=== PATIENT | male | born 1970 | race Caucasian/White ===

== ENCOUNTER 2016-11-24 16:29 | Emergency (ER) | payer OTHER ==
[2016-11-24 17:36] LABS: BASOPHIL % 0.7 % (0-2); PLATELET COUNT 183 x10^3mcL (130-400)
[2016-11-24 17:42] LABS: microscopic required? YES; urine erythrocyte NEGATIVE (NEGATIVE)
[2016-11-24 17:44] LABS: CALCIUM 8.3 mg/dL (8.5-10.1); CARBON DIOXIDE 23.8 mmol/L (21-32); CHLORIDE SERUM 104 mmol/L (98-107); CREATININE SERUM 1.1 mg/dL (0.7-1.3); GFR1 > 60 mL/min; GLUCOSE SERUM 143 mg/dL (74-106); POTASSIUM SERUM 3.5 mmol/L (3.5-5.1); SODIUM SERUM 138 mmol/L (136-145)
[2016-11-24 17:49] LABS: AMPHETAMINE QUAL UR NONE DETECTED (NEG <=1000)
[2016-11-24 17:57] LABS: ALBUMIN 3.2 g/dL (3.4-5.0); ALKALINE PHOSPHATASE 177 U/L (46-116); ALT/SGPT 323 U/L (16-63); AMYLASE 30 U/L (25-115); AST/SGOT 395 U/L (15-37); BILIRUBIN TOTAL 1.2 mg/dL (0.20-1.00); CHOLESTEROL 118 mg/dL (<200); HDL CHOLESTEROL 51 mg/dL (40-60); LIPASE 223 IU/L (73-393); MAGNESIUM 1.5 mg/dL (1.8-2.4); T4(THYROXINE) 7.5 ug/dL (4.7-13.3); TOTAL PROTEIN, SERUM 7.4 g/dL (6.4-8.2)
[2016-11-24 21:00] VITALS: BP 121/85
== END 2016-11-24 21:00 | disposition home or self-care (01) ==
LOC: ED 16:29
PROVIDERS: Emergency Medicine
DX: R55 Syncope and collapse (principal); R16.0 Hepatomegaly, not elsewhere classified; E11.9 Type 2 diabetes mellitus without complications; I10 Essential (primary) hypertension; K42.9 Umbilical hernia without obstruction or gangrene; Z79.84 Long term (current) use of oral hypoglycemic drugs; Z88.0 Allergy status to penicillin
CPT/HCPCS: 83880; J7030; Q9967

== ENCOUNTER 2017-02-04 16:11 | Inpatient (IN) | payer OTHER ==
[~2017-02-04] VITALS: Ht 177.8 cm; Wt 82.7 kg
--- NOTE | 2017-02-04 17:10 | NUR ---
PT HERE FOR C/O DIZZINESS SINCE YESTERDAY WITH N/V/D. PT'S DAUGHTER AT BEDSIDE PRIVATELY REPORTED TO STUDENT NURSE CHENCHO THOMAS THAT PT HAS BEEN DRINKING "ALL WEEK" AND IS AN "ALCOHOLIC." PT HAS FULL CLEAR SPEECH AND IS ACTING APPROPRIATE; NO SIGNS OF SOB OR C/O CHEST PAIN. PT DENIES PAIN AT THIS TIME. PT PLACED ON FULL MONITORS, CALL LIGHT WITHIN REACH. NO SIGNS OF WEAKNESS.
--- NOTE | 2017-02-04 17:42 | NUR ---
PLEASE ENTER FULL NAMES OF STUDENT/RN Documentation completed by (Student Nurse): CHENCHO THOMAS Documentation reviewed by (Registered Nurse): NEIL LEWIS
[2017-02-04 17:52] LABS: CALCIUM 8.4 mg/dL (8.5-10.1); CARBON DIOXIDE 19.7 mmol/L (21-32); CREATININE SERUM 1.6 mg/dL (0.7-1.3); POTASSIUM SERUM 3.7 mmol/L (3.5-5.1)
[2017-02-04 17:54] LABS: BASOPHIL % 0.5 % (0-2); PLATELET COUNT 148 x10^3mcL (130-400)
[2017-02-04 17:57] LABS: BILIRUBIN TOTAL 0.46 mg/dL (0.20-1.00); TOTAL PROTEIN, SERUM 6.2 g/dL (6.4-8.2)
[2017-02-04 17:58] LABS: ALBUMIN 2.5 g/dL (3.4-5.0)
[2017-02-04 18:04] LABS: RED CELL DISTRIBUTION WIDTH 19.4 % (11.5-14.5)
--- NOTE | 2017-02-04 18:08 | NUR ---
PT ADMITS TO BLACK STOOLS YESTERDAY. VOMITED BLACK MATERIAL TODAY "WITH LITTLE RED THINGS FROM MY THROAT."
--- NOTE | 2017-02-04 18:10 | NUR ---
RECTAL EXAM DONE BY DR. MUÑOZ.
--- NOTE | 2017-02-04 18:20 | NUR ---
BILAT NARES SWABBED FOR MRSA SCREENING.
[2017-02-04] MEDS ORDERED: LISINOPRIL10 MG PO (18:24)
[2017-02-04] MEDS ORDERED: GLUCOTROL5 MG PO (18:24)
[2017-02-04] MEDS ORDERED: METFORMIN HCL1000 MG PO (18:24)
--- NOTE | 2017-02-04 18:25 | NUR ---
CALLED [facility] TO COMPLETE MED'S REC. METFORMIN & LISINOPRIL LAST FILLED IN June, DAY SUPPLY. GLIPIZIDE LAST FILLED IN June, DAY SUPPLY. PT IS OBVIOUSLY NONCOMPLIANT. PT STATED TODAY NO MEDS X 2 DAYS.
--- NOTE | 2017-02-04 18:29 | NUR ---
DR MUÑOZ MADE AWARE OF PT PAIN LEVEL.
[2017-02-04 18:31] LABS: rbc morphology (normal/abnorm) ABNORMAL (NORMAL)
--- NOTE | 2017-02-04 19:33 | NUR ---
PT RESTING, AAOX4, BREATHING EVEN AND UNLABORED. PT IN NO ACUTE DISTRESS.
--- NOTE | 2017-02-04 19:49 | NUR ---
GAVE REPORT TO JENNI ESPINOSA, TO ASSUME CARE POST TRANSFER.
[2017-02-04 19:57] LABS: UA SPECIFIC GRAVITY >=1.030 (1.005-1.035); microscopic required? YES; urine erythrocyte NEGATIVE (NEGATIVE)
--- NOTE | 2017-02-04 20:00 | NUR ---
RECEIVED PT FROM ED VIA KliqueERNEY, CAME IN DUE TO DIZZINESS. AAOX4. DENIES HEADACHE/DIZZINESS. NO SOB NOTED. C/O 10/10 LEFT SIDE OF THE CHEST PAIN, NON-RADIATING DESCRIBED ACHING. PT IS ATRIAL FLUTTER ON THE MONITOR, HR AT 101. ABDOMEN IS DISTENDED BUT SOFT, STATED THAT HE NOTICED THE DISTENTION YESTERDAY. STATED THAT HE HAS BEEN PASSING GAS AND HAD BLACK DIARRHEAL STOOLS THAT STARTED TODAY. PALE. C/O NAUSEA, STATED THAT HE VOMITED X8 SINCE YESTERDAY. SIDE RAILS UPX2. CALL LIGHT ON REACH. ENDORSED TO PRIMARY NURSE JENNI FOR CONTINUITY OF CARE.
[2017-02-04 20:13] LABS: AMPHETAMINE QUAL UR POSITIVE (NEG <=1000)
[2017-02-04 20:24] VITALS: BP 125/66
[2017-02-04 20:29] VITALS: Ht 177.8 cm; Wt 82.7 kg
--- NOTE | 2017-02-04 21:55 | NUR ---
PATIENTS H/H 5.08/16 RECEIVED ORDERS TO TRANSFUSE 4 UNITS OF PRBC. 1ST UNIT OF PRBC STARTED. PRE TRANSFUSION VITAL SIGNS FOLLOWS TEMP 98.2, HR 108, RR 18, BP 125/66, O2 SAT 99%. WILL MONITOR FOR ANY TRANSFUSION REACTION.
--- NOTE | 2017-02-05 01:09 | NUR ---
PATIENT COMPLETED 1ST UNIT OF PRBC. POST TRANSFUSION VITAL SIGNS FOLLOWS TEMP 100.7 HR 97, BP 99/73, O2 SAT 99%. DR BUENO MADE AWARE OF ELEVATED TEMPERATURE. RECEIVED ORDERS TO RUN BLOOD TRANSFUSION 3-4HRS AND GIVE TYLENOL 650 MG PO ORDERED. NO FURTHER COMPLAINTS MADE. COOLING MEASURES PROVIDED.
--- NOTE | 2017-02-05 01:30 | NUR ---
2ND UNIT OF PRBC STARTED. PRE TRANSFUSION VITAL SIGNS FOLLOWS TEMP 100.7 HR 97, BP 99/73, RR 20, O2SAT 99%. WILL CONTINUE TO MONITOR FOR ANY TRANSFUSION REACTION.
[2017-02-05 06:18] VITALS: BP 108/64
--- NOTE | 2017-02-05 06:30 | NUR ---
SPOT CHECK BLOOD SUGAR 232 MG/DL. PATIENT NPO.
--- NOTE | 2017-02-05 06:36 | NUR ---
3RD UNIT OF PRBC STARTED. PRE TRANSFUSION VITAL SIGNS FOLLOWS TEMP 100.3, HR 90, BP 105/70, RR 20, O2SAT 99%. WILL CONTINUE TO MONITOR FOR ANY TRANSFUSION REACTION.
--- NOTE | 2017-02-05 06:37 | NUR ---
PATIENT RESTING IN BED AT THIS TIME. NO COMPLAINT MADE. RESPIRATION EVEN AND UNLABORED, ON ROOM AIR. NO SIGN OF BLEEDING NOTED. FOR EGD THIS AM. ONGOING 3RD UNIT OF PRBC. ASSISTED WITH NEEDS. SAFETY OBSERVED. PLACED CALL LIGHT WITHIN REACH AT ALL TIMES.
--- NOTE | 2017-02-05 07:34 | NUR ---
PT IN GI LAB
--- NOTE | 2017-02-05 08:39 | NUR ---
PT BACK FROM GI LAB SLEEPY BUT AROUSABLE. IN NO ACUTE RESP. DISTRESS. VS STABLE. ONGOING BLOOD TRANSFUSION AND NO ACTIVE REACTION NOTED. FAMILY AT BEDSIDE. CALL LIGHT WITHIN REACH. WILL CONTINUE W/PLAN OF CARE.
[2017-02-05 09:00] VITALS: BP 97/61
--- NOTE | 2017-02-05 10:00 | NUR ---
3RD UNIT PRBC TRANSFUSED, PT TOLERATED WELL. NO ACTIVE REACTION NOTED. VS STABLE. PT RESTING IN BED, NO DISTRESS NOTED. NO C/O PAIN OR DISCOMFORT.
--- NOTE | 2017-02-05 12:41 | NUR ---
4TH UNIT PRBC INFUSING WELL, NO REACTION NOTED. NO CHANGES IN VS. PT TOLERATING WELL.
[2017-02-05 13:56] LABS: BASOPHIL % 0.7 % (0-2)
[2017-02-05 14:01] LABS: PLATELET COUNT 123 x10^3mcL (130-400); RED CELL DISTRIBUTION WIDTH 22.2 % (11.5-14.5)
[2017-02-05 14:11] VITALS: BP 101/67
[2017-02-05 14:44] LABS: CARBON DIOXIDE 26.5 mmol/L (21-32); CHLORIDE SERUM 102 mmol/L (98-107); CREATININE SERUM 0.7 mg/dL (0.7-1.3); GFR1 > 60 mL/min; GLUCOSE SERUM 323 mg/dL (74-106); MAGNESIUM 1.5 mg/dL (1.8-2.4); POTASSIUM SERUM 3.6 mmol/L (3.5-5.1); SODIUM SERUM 132 mmol/L (136-145)
[2017-02-05 14:47] LABS: TOTAL IRON BINDING CAPACITY 329 ug/dL (250-450)
[2017-02-05 15:05] LABS: IRON 23 ug/dL (65-170)
--- NOTE | 2017-02-05 15:16 | NUR ---
BLOOD TRANSFUSION COMPLETED, PT TOLERATED WELL. NO REACTION NOTED. VS STABLE. NO C/O PAIN OR DISCOMFORT AT THIS TIME. GI PREP IN PROGRESS. WILL CONTINUE TO MONITOR.
[2017-02-05 18:02] VITALS: BP 117/77
--- NOTE | 2017-02-05 18:36 | NUR ---
GI PREP. IN PROGRESS. PT TOLERATING WELL. REMAINS IN NO DISTRESS. AWAKE AND ALERT. NO C/O PAIN OR DISCOMFORT AT THIS TIME. IVF INFUSING WELL AND SITE CLEAR. CALL LIGHT WITHIN REACH. WILL BE ENDORSED TO INCOMING SHIFT.
--- NOTE | 2017-02-05 18:38 | NUR ---
CONSENT FOR COLONOSCOPY SIGNED. CHECKLIST STARTED.
--- NOTE | 2017-02-05 20:02 | NUR ---
PT CURRENTLY RESTING IN BED, NO ACUTE DISTRESS. A/O X4. TELE #22 SHOWING SINUS RHYTHM, DENIES CHEST PAIN. PULSES PALPABLE IN ALL EXTREMITIES, NO EDEMA NOTED. LUNG SOUNDS CTA BILATERALLY, DENIES SOB. BOWEL SOUNDS ACTIVE, LAST BM 02/05/17, DIARRHEA DUE TO BOWEL PREP. VOIDING WELL. AMBULATORY. SKIN INTACT. DENIES PAIN AT THIS TIME. IV PATENT AND INTACT. BED IN LOWEST POSITION, SIDE RAILS UP X2, SCDS IN PLACE, CALL LIGHT WITHIN REACH. WILL CONTINUE TO MONITOR.
[2017-02-05 20:52] VITALS: BP 111/62
[2017-02-06 05:24] VITALS: BP 123/82
--- NOTE | 2017-02-06 05:49 | NUR ---
PT SLEPT PERIODICALLY THROUGHOUT NIGHT, NO ACUTE DISTRESS. ALL NEEDS MET AND ATTENDED TO. NO SIGNIFICANT CHANGES. IV PATENT AND INTACT. BED IN LOWEST POSITION, SIDE RAILS UP X2, SCDS IN PLACE, CALL LIGHT WITHIN REACH. WILL ENDORSE CARE TO ONCOMING NURSE.
[2017-02-06 06:33] LABS: CALCIUM 8.2 mg/dL (8.5-10.1); CARBON DIOXIDE 26.4 mmol/L (21-32); CHLORIDE SERUM 104 mmol/L (98-107); CREATININE SERUM 0.6 mg/dL (0.7-1.3); GFR1 > 60 mL/min; GLUCOSE SERUM 209 mg/dL (74-106); MAGNESIUM 1.6 mg/dL (1.8-2.4); POTASSIUM SERUM 4.2 mmol/L (3.5-5.1); SODIUM SERUM 136 mmol/L (136-145)
[2017-02-06 06:37] LABS: BASOPHIL % 0.6 % (0-2)
[2017-02-06 06:39] LABS: PLATELET COUNT 116 x10^3mcL (130-400); RED CELL DISTRIBUTION WIDTH 21.7 % (11.5-14.5)
--- NOTE | 2017-02-06 07:33 | NUR ---
RECEIVED ASLEEP BUT AROUSABLE, NO DISTRESS NOTED. NO C/O PAIN OR DISCOMFORT. VS WNL. IVF INFUSING WELL AND SITE CLEAR. CALL LIGHT WITHIN REACH. WILL CONRINUE W/PLAN OF CARE.
[2017-02-06 09:55] VITALS: BP 110/76
--- NOTE | 2017-02-06 11:30 | NUR ---
PT IS BACK FROM GI LAB SLEEPY BUT AROUSABLE, NO DISTRESS NOTED. NO C/O PAIN OR DISCOMFORT. VSS.
[2017-02-06] MEDS ORDERED: FERROUS SULFAT325 M2 PO (13:01)
[2017-02-06] MEDS ORDERED: PROTONIX40 MG PO (13:01)
[2017-02-06 13:05] VITALS: BP 110/76
--- NOTE | 2017-02-06 14:02 | NUR ---
PT DC'D HOME IN NO DISTRESS, AWAKE, ALERT AND ORIENTED. VS STABLE. NO C/O PAIN OR DISCOMFORT. NO ACTIVE GI BLEED NOTED. TOLERATED WELL WITH REG. DIET. DC INSTRUCTIONS REVIEWED WITH PT AND . RX GIVEN. HL REMOVED AND SITE CLEAR. PERSONAL BELONGINGS TAKEN HOME.
== END 2017-02-06 13:58 | disposition home or self-care (01) | DRG 253 ==
LOC: ED 16:11 → DU 19:19
PROVIDERS: Emergency Medicine; ADMIT Internal Medicine Pulmonary Disease
PROC: 30233N1 Transfusion of Nonautologous Red Blood Cells into Peripheral Vein, Percutaneous Approach (ICD-10-PCS; principal; 2017-02-04)
PROC: 0DB68ZX Excision of Stomach, Via Natural or Artificial Opening Endoscopic, Diagnostic (ICD-10-PCS; 2017-02-05)
PROC: 0DBG8ZX Excision of Left Large Intestine, Via Natural or Artificial Opening Endoscopic, Diagnostic (ICD-10-PCS; 2017-02-06)
DX: K92.2 Gastrointestinal hemorrhage, unspecified (principal); N17.9 Acute kidney failure, unspecified; E87.2 Acidosis; E87.1 Hypo-osmolality and hyponatremia; E11.9 Type 2 diabetes mellitus without complications; Z88.0 Allergy status to penicillin; I10 Essential (primary) hypertension; K21.9 Gastro-esophageal reflux disease without esophagitis; K76.0 Fatty (change of) liver, not elsewhere classified; D62 Acute posthemorrhagic anemia; E86.1 Hypovolemia; K63.5 Polyp of colon; K29.70 Gastritis, unspecified, without bleeding
CPT/HCPCS: 36600; 43239; 45378; 82962; 83880; C9113; J1200; J1610; J1815; J2250; J2310; J2405; J3010; J3490; J7030; J7040; P9016; Q0092

== ENCOUNTER 2017-02-16 12:00 | Emergency (ER) | payer OTHER ==
[~2017-02-16 12:00] MED LIST: FERROUS SULFAT325 M2 PO; GLUCOTROL5 MG PO; LISINOPRIL10 MG PO; METFORMIN HCL1000 MG PO; PROTONIX40 MG PO
[2017-02-16 14:06] VITALS: BP 105/75
== END 2017-02-16 14:06 | disposition home or self-care (01) ==
LOC: ED 12:00
DX: S40.011A Contusion of right shoulder, initial encounter (principal); E11.9 Type 2 diabetes mellitus without complications; I10 Essential (primary) hypertension; Z79.4 Long term (current) use of insulin; Z88.0 Allergy status to penicillin; X58.XXXA Exposure to other specified factors, initial encounter; Y93.89 Activity, other specified; Y92.89 Other specified places as the place of occurrence of the external cause; Y99.8 Other external cause status
CPT/HCPCS: Q0092

== ENCOUNTER 2017-12-03 21:12 | Inpatient (IN) | payer OTHER ==
[~2017-12-03] VITALS: Ht 177.8 cm; Wt 92.7 kg
[2017-12-03 21:23] VITALS: Ht 177.8 cm; Wt 92.7 kg
[2017-12-03 22:06] LABS: CALCIUM 7.4 mg/dL (8.5-10.1); CARBON DIOXIDE 23.3 mmol/L (21-32); CHLORIDE SERUM 102 mmol/L (98-107); CREATININE SERUM 0.8 mg/dL (0.7-1.3); GFR1 > 60 mL/min; GLUCOSE SERUM 200 mg/dL (74-106); POTASSIUM SERUM 3.8 mmol/L (3.5-5.1); SODIUM SERUM 136 mmol/L (136-145)
[2017-12-03 22:12] LABS: BASOPHIL % 0.3 % (0-2); PLATELET COUNT 307 x10^3mcL (130-400)
[2017-12-03 22:15] LABS: RED CELL DISTRIBUTION WIDTH 26.3 % (11.5-14.5)
[2017-12-03 22:17] LABS: ALKALINE PHOSPHATASE 135 U/L (46-116); ALT/SGPT 40 U/L (16-63); AMYLASE 50 U/L (25-115); AST/SGOT 50 U/L (15-37); BILIRUBIN TOTAL 1.69 mg/dL (0.20-1.00); LIPASE 400 IU/L (73-393); MAGNESIUM 1.7 mg/dL (1.8-2.4); T4(THYROXINE) 5.2 ug/dL (4.7-13.3); TOTAL PROTEIN, SERUM 6.7 g/dL (6.4-8.2)
[2017-12-03 22:18] LABS: ALBUMIN 2.3 g/dL (3.4-5.0); CHOLESTEROL 108 mg/dL (<200); HDL CHOLESTEROL 26 mg/dL (40-60)
[2017-12-04] VITALS (13 sets, daily range): BP systolic 103–125; BP diastolic 61–84
[2017-12-04 00:14] LABS: UA SPECIFIC GRAVITY 1.025 (1.005-1.035); microscopic required? YES; urine erythrocyte NEGATIVE (NEGATIVE)
[2017-12-04 00:48] LABS: AMPHETAMINE QUAL UR NONE DETECTED (See below)
[2017-12-04 00:58] LABS: rbc morphology (normal/abnorm) ABNORMAL (NORMAL)
[2017-12-04 00:59] LABS: target cell (codocyte) 1+
[2017-12-04 11:16] LABS: BASOPHIL % 0.8 % (0-2); PLATELET COUNT 243 x10^3mcL (130-400)
[2017-12-04 11:27] LABS: CALCIUM 7.5 mg/dL (8.5-10.1); CHLORIDE SERUM 100 mmol/L (98-107); CREATININE SERUM 0.7 mg/dL (0.7-1.3); GFR1 > 60 mL/min; GLUCOSE SERUM 209 mg/dL (74-106); POTASSIUM SERUM 3.6 mmol/L (3.5-5.1); SODIUM SERUM 135 mmol/L (136-145)
[2017-12-04 11:35] LABS: rbc morphology (normal/abnorm) ABNORMAL (NORMAL)
[2017-12-04 11:36] LABS: target cell (codocyte) 1+
[2017-12-04 22:16] LABS: BASOPHIL % 1.3 % (0-2); PLATELET COUNT 224 x10^3mcL (130-400)
[2017-12-04 22:21] LABS: RED CELL DISTRIBUTION WIDTH 21.5 % (11.5-14.5)
[2017-12-04 22:46] LABS: rbc morphology (normal/abnorm) ABNORMAL (NORMAL); target cell (codocyte) 1+
[2017-12-05] VITALS (10 sets, daily range): BP systolic 96–122; BP diastolic 61–70
[2017-12-05 06:34] LABS: BASOPHIL % 0.5 % (0-2); PLATELET COUNT 214 x10^3mcL (130-400)
[2017-12-05 06:44] LABS: RED CELL DISTRIBUTION WIDTH 20.3 % (11.5-14.5)
[2017-12-05 06:54] LABS: ALKALINE PHOSPHATASE 121 U/L (46-116); ALT/SGPT 36 U/L (16-63); AST/SGOT 61 U/L (15-37); BILIRUBIN TOTAL 3.56 mg/dL (0.20-1.00); CALCIUM 7.8 mg/dL (8.5-10.1); CARBON DIOXIDE 23.5 mmol/L (21-32); CHLORIDE SERUM 101 mmol/L (98-107); CREATININE SERUM 0.8 mg/dL (0.7-1.3); GFR1 > 60 mL/min; GLUCOSE SERUM 145 mg/dL (74-106); POTASSIUM SERUM 4.2 mmol/L (3.5-5.1); SODIUM SERUM 133 mmol/L (136-145); TOTAL PROTEIN, SERUM 6.3 g/dL (6.4-8.2)
[2017-12-05 09:05] LABS: rbc morphology (normal/abnorm) ABNORMAL (NORMAL)
[2017-12-06 06:03] VITALS: BP 97/59
[2017-12-06 06:13] LABS: BASOPHIL % 0.3 % (0-2); PLATELET COUNT 198 x10^3mcL (130-400)
[2017-12-06 06:26] LABS: ALKALINE PHOSPHATASE 103 U/L (46-116); ALT/SGPT 44 U/L (16-63); AST/SGOT 80 U/L (15-37); BILIRUBIN TOTAL 3.06 mg/dL (0.20-1.00); CALCIUM 7.8 mg/dL (8.5-10.1); CARBON DIOXIDE 27.1 mmol/L (21-32); CHLORIDE SERUM 104 mmol/L (98-107); CREATININE SERUM 0.8 mg/dL (0.7-1.3); GFR1 > 60 mL/min; GLUCOSE SERUM 133 mg/dL (74-106); POTASSIUM SERUM 4.1 mmol/L (3.5-5.1); SODIUM SERUM 136 mmol/L (136-145)
[2017-12-06 06:39] LABS: ALBUMIN 1.8 g/dL (3.4-5.0); TOTAL PROTEIN, SERUM 5.8 g/dL (6.4-8.2)
[2017-12-06 09:15] LABS: ovalocyte/elliptocyte 1+
[2017-12-06 09:16] LABS: rbc morphology (normal/abnorm) ABNORMAL (NORMAL); schistocyte (helmet cell) 1+; target cell (codocyte) 1+; tear drop cell (dacryocyte) 1+
[2017-12-06 09:33] VITALS: BP 106/87
[2017-12-06 10:30] VITALS: BP 106/87
[2017-12-06 18:25] LABS: SOURCE FLUID ASCITES
[2017-12-06 18:26] LABS: COLOR FLUID YELLOW
[2017-12-06 18:53] LABS: APPEARANCE FLUID CLEAR
[2017-12-06 18:54] LABS: RBC FLUID 3.3 /cumm; WBC FLUID 6.7 /cumm
== END 2017-12-06 12:29 | disposition home or self-care (01) | DRG 280 ==
LOC: ED 21:12 → DU 22:48
PROVIDERS: Emergency Medicine; Internal Medicine; Internal Medicine Gastroenterology; Internal Medicine Pulmonary Disease
PROC: 30233N1 Transfusion of Nonautologous Red Blood Cells into Peripheral Vein, Percutaneous Approach (ICD-10-PCS; principal; 2017-12-04)
PROC: 0W9G3ZZ Drainage of Peritoneal Cavity, Percutaneous Approach (ICD-10-PCS; 2017-12-05)
PROC: 0DB78ZX Excision of Stomach, Pylorus, Via Natural or Artificial Opening Endoscopic, Diagnostic (ICD-10-PCS; 2017-12-05 12:45)
DX: K70.31 Alcoholic cirrhosis of liver with ascites (principal); K22.11 Ulcer of esophagus with bleeding; K85.20 Alcohol induced acute pancreatitis without necrosis or infection; D62 Acute posthemorrhagic anemia; K44.9 Diaphragmatic hernia without obstruction or gangrene; F10.129 Alcohol abuse with intoxication, unspecified; I10 Essential (primary) hypertension; I85.10 Secondary esophageal varices without bleeding; E11.9 Type 2 diabetes mellitus without complications; R60.1 Generalized edema; Y90.8 Blood alcohol level of 240 mg/100 ml or more; E78.00 Pure hypercholesterolemia, unspecified; K42.9 Umbilical hernia without obstruction or gangrene; Z68.27 Body mass index [BMI] 27.0-27.9, adult; Z88.0 Allergy status to penicillin; Z91.19 Patient's noncompliance with other medical treatment and regimen
CPT/HCPCS: 43235; 49083; 83880; C1729; C9113; G0480; J1200; J1610; J1815; J1940; J1956; J2001; J2250; J2310; J2354; J2916; J3010; J3430; J3490; J7040; J7050; P9016; Q0092

== ENCOUNTER 2018-01-21 10:08 | Emergency (ER) | payer OTHER ==
[2018-01-21 13:24] VITALS: BP 119/77
== END 2018-01-21 13:24 | disposition home or self-care (01) ==
LOC: ED 10:08
DX: S22.32XA Fracture of one rib, left side, initial encounter for closed fracture (principal); I10 Essential (primary) hypertension; E11.9 Type 2 diabetes mellitus without complications; K70.31 Alcoholic cirrhosis of liver with ascites; Z88.0 Allergy status to penicillin; X58.XXXA Exposure to other specified factors, initial encounter; Y93.89 Activity, other specified; Y92.89 Other specified places as the place of occurrence of the external cause; Y99.8 Other external cause status

== ENCOUNTER 2018-06-17 03:50 | Inpatient (IN) | payer OTHER ==
[~2018-06-17] VITALS: Ht 175.3 cm; Wt 87.1 kg
[2018-06-17 03:56] VITALS: Ht 175.3 cm; Wt 87.1 kg
[2018-06-17 04:44] LABS: BASOPHIL % 0.5 % (0-2); PLATELET COUNT 130 x10^3mcL (130-400)
[2018-06-17 04:45] LABS: RED CELL DISTRIBUTION WIDTH 19.5 % (11.5-14.5)
[2018-06-17 05:31] LABS: CALCIUM 8.5 mg/dL (8.5-10.1); CARBON DIOXIDE 21.1 mmol/L (21-32); CHLORIDE SERUM 100 mmol/L (98-107); CREATININE SERUM 1.1 mg/dL (0.7-1.3); GFR1 > 60 mL/min; GLUCOSE SERUM 135 mg/dL (74-106); POTASSIUM SERUM 3.8 mmol/L (3.5-5.1); SODIUM SERUM 133 mmol/L (136-145)
[2018-06-17 05:35] LABS: ALKALINE PHOSPHATASE 119 U/L (46-116); ALT/SGPT 30 U/L (16-63); AST/SGOT 36 U/L (15-37); LIPASE 551 IU/L (73-393); TOTAL PROTEIN, SERUM 8.2 g/dL (6.4-8.2)
[2018-06-17 05:36] LABS: ALBUMIN 2.8 g/dL (3.4-5.0)
[2018-06-17] MEDS ORDERED: RELION HUMUL100 U/M2 (06:04)
[2018-06-17] MEDS ORDERED: LASIX40 MG (06:06)
[2018-06-17] MEDS ORDERED: EPZICOM1 TAB (06:06)
[2018-06-17 12:37] VITALS: BP 94/58
[2018-06-17 13:21] VITALS: BP 102/72
[2018-06-17 13:25] LABS: microscopic required? NO
[2018-06-17 13:30] LABS: urine erythrocyte NEGATIVE (NEGATIVE)
[2018-06-17 13:39] LABS: AMPHETAMINE QUAL UR NONE DETECTED (See below)
[2018-06-17 16:43] VITALS: BP 96/65
[2018-06-17 21:24] VITALS: BP 99/68
[2018-06-18 05:44] VITALS: BP 92/52
[2018-06-18 07:50] LABS: ALKALINE PHOSPHATASE 103 U/L (46-116); ALT/SGPT 28 U/L (16-63); AST/SGOT 32 U/L (15-37); BILIRUBIN TOTAL 2.2 mg/dL (0.20-1.00); CALCIUM 8.1 mg/dL (8.5-10.1); CARBON DIOXIDE 20.9 mmol/L (21-32); CHLORIDE SERUM 102 mmol/L (98-107); CREATININE SERUM 1.2 mg/dL (0.7-1.3); GFR1 > 60 mL/min; GLUCOSE SERUM 104 mg/dL (74-106); MAGNESIUM 1.8 mg/dL (1.8-2.4); PHOSPHOROUS 4.1 mg/dL (2.5-4.9); POTASSIUM SERUM 3.9 mmol/L (3.5-5.1); SODIUM SERUM 133 mmol/L (136-145); TOTAL PROTEIN, SERUM 7.6 g/dL (6.4-8.2)
[2018-06-18 07:51] LABS: ALBUMIN 2.6 g/dL (3.4-5.0)
[2018-06-18 08:02] LABS: PLATELET COUNT 126 x10^3mcL (130-400); RED CELL DISTRIBUTION WIDTH 19.5 % (11.5-14.5)
[2018-06-18 08:50] VITALS: BP 94/70
[2018-06-18 10:45] LABS: ATYPICAL LYMPH 1 %; BAND NEUTROPHIL 0 % (0-10); BASOPHIL 0 % (0-2); MONOCYTE 11 % (0-7); SEGMENTED NEUTROPHILS 77 % (37-75)
[2018-06-18 10:46] LABS: PLATELET MORPHOLOGY PLATELETS DECREASED
[2018-06-18 10:47] LABS: rbc morphology (normal/abnorm) ABNORMAL (NORMAL)
[2018-06-18] MEDS ORDERED: LAC30L PO (12:24)
[2018-06-18] MEDS ORDERED: ZOFRAN ODT4 MG SL (12:25)
[2018-06-18] MEDS ORDERED: NORCO1 TA2 PO (12:25)
[2018-06-18 12:28] VITALS: BP 104/62
[2018-06-18 13:26] VITALS: BP 104/62
== END 2018-06-18 15:37 | disposition home or self-care (01) | DRG 282 ==
LOC: ED 03:50 → DU 06:21
PROVIDERS: Emergency Medicine; Internal Medicine Pulmonary Disease; ADMIT Internal Medicine Pulmonary Disease
DX: K85.30 Drug induced acute pancreatitis without necrosis or infection (principal); I31.9 Disease of pericardium, unspecified; E72.20 Disorder of urea cycle metabolism, unspecified; K74.60 Unspecified cirrhosis of liver; E11.9 Type 2 diabetes mellitus without complications; I10 Essential (primary) hypertension; D64.9 Anemia, unspecified; T46.4X5A Adverse effect of angiotensin-converting-enzyme inhibitors, initial encounter; Z88.0 Allergy status to penicillin; Y92.89 Other specified places as the place of occurrence of the external cause
CPT/HCPCS: 82962; G0480; J1644; J2270; J2405; J7030; J7120; Q0092; Q9967

== ENCOUNTER 2018-06-24 03:39 | Inpatient (IN) | payer OTHER ==
[~2018-06-24] VITALS: Ht 172.7 cm; Wt 102.6 kg
[2018-06-24] VITALS (15 sets, daily range): BP systolic 85–116; BP diastolic 45–66
[~2018-06-24 03:39] MED LIST changes: +EPZICOM1 TAB; +LAC30L PO; +LASIX40 MG; +NORCO1 TA2 PO; +RELION HUMUL100 U/M2; +ZOFRAN ODT4 MG SL
[2018-06-24 05:04] LABS: CALCIUM 7.3 mg/dL (8.5-10.1); CARBON DIOXIDE 22.6 mmol/L (21-32); CHLORIDE SERUM 108 mmol/L (98-107); CREATININE SERUM 1.2 mg/dL (0.7-1.3); GFR1 > 60 mL/min; GLUCOSE SERUM 143 mg/dL (74-106); POTASSIUM SERUM 4.8 mmol/L (3.5-5.1); SODIUM SERUM 143 mmol/L (136-145)
[2018-06-24 05:08] LABS: ALKALINE PHOSPHATASE 50 U/L (46-116); AST/SGOT 28 U/L (15-37); BILIRUBIN TOTAL 2.54 mg/dL (0.20-1.00)
[2018-06-24 05:28] LABS: ALBUMIN 1.3 g/dL (3.4-5.0); TOTAL PROTEIN, SERUM 4.1 g/dL (6.4-8.2)
[2018-06-24 05:38] LABS: ALT/SGPT 19 U/L (16-63)
[2018-06-24] MEDS ORDERED: FUROSEMIDE40 MG PO (08:05)
[2018-06-24] MEDS ORDERED: PROPRANOLOL HCL20 MG PO (08:05)
[2018-06-24 08:43] LABS: microscopic required? YES; urine erythrocyte TRACE (NEGATIVE)
[2018-06-24 08:47] LABS: PLATELET COUNT 103 x10^3mcL (130-400)
[2018-06-24 08:48] LABS: BASOPHIL % 0 % (0-2)
[2018-06-24 08:50] LABS: RED CELL DISTRIBUTION WIDTH 28.8 % (11.5-14.5)
[2018-06-24 08:56] LABS: rbc morphology (normal/abnorm) ABNORMAL (NORMAL); target cell (codocyte) 1+
[2018-06-24 08:57] LABS: acanthocyte (spur cell) 1+; ovalocyte/elliptocyte 1+
[2018-06-25] VITALS (15 sets, daily range): BP systolic 94–114; BP diastolic 56–75; Ht 172.7 cm; Wt 102.6 kg
[2018-06-25 04:58] LABS: BASOPHIL % 1.1 % (0-2)
[2018-06-25 05:04] LABS: PLATELET COUNT 84 x10^3mcL (130-400); RED CELL DISTRIBUTION WIDTH 19.5 % (11.5-14.5)
[2018-06-25 05:14] LABS: CALCIUM 7.1 mg/dL (8.5-10.1); CARBON DIOXIDE 27.3 mmol/L (21-32); CHLORIDE SERUM 111 mmol/L (98-107); CREATININE SERUM 1.1 mg/dL (0.7-1.3); GFR1 > 60 mL/min; GLUCOSE SERUM 168 mg/dL (74-106); POTASSIUM SERUM 3.5 mmol/L (3.5-5.1); SODIUM SERUM 144 mmol/L (136-145)
[2018-06-26 03:20] VITALS: BP 96/48
[2018-06-26 05:52] LABS: CALCIUM 7.6 mg/dL (8.5-10.1); CARBON DIOXIDE 23.2 mmol/L (21-32); CHLORIDE SERUM 114 mmol/L (98-107); CREATININE SERUM 1.1 mg/dL (0.7-1.3); GFR1 > 60 mL/min; GLUCOSE SERUM 170 mg/dL (74-106); POTASSIUM SERUM 3.5 mmol/L (3.5-5.1); SODIUM SERUM 146 mmol/L (136-145)
[2018-06-26 06:10] LABS: BASOPHIL % 0 % (0-2); PLATELET COUNT 67 x10^3mcL (130-400)
[2018-06-26 06:13] LABS: RED CELL DISTRIBUTION WIDTH 20.5 % (11.5-14.5)
[2018-06-26 06:38] LABS: acanthocyte (spur cell) 1+; rbc morphology (normal/abnorm) ABNORMAL (NORMAL); schistocyte (helmet cell) 1+
[2018-06-26 07:57] VITALS: BP 113/66
[2018-06-26 18:37] LABS: BASOPHIL % 0.2 % (0-2)
[2018-06-26 19:08] LABS: RED CELL DISTRIBUTION WIDTH 20.4 % (11.5-14.5)
[2018-06-26 19:09] LABS: PLATELET COUNT 82 x10^3mcL (130-400)
[2018-06-26 19:14] LABS: rbc morphology (normal/abnorm) ABNORMAL (NORMAL)
[2018-06-26 21:13] VITALS: BP 108/62
[2018-06-26 22:42] VITALS: BP 98/58
[2018-06-27 05:44] VITALS: BP 95/56
[2018-06-27 07:15] LABS: BASOPHIL % 0.4 % (0-2)
[2018-06-27 08:11] LABS: ALKALINE PHOSPHATASE 59 U/L (46-116); ALT/SGPT 27 U/L (16-63); AST/SGOT 34 U/L (15-37); BILIRUBIN DIRECT 1.21 mg/dL (0.0-0.2); BILIRUBIN TOTAL 2.27 mg/dL (0.20-1.00); CALCIUM 7.6 mg/dL (8.5-10.1); CARBON DIOXIDE 23.7 mmol/L (21-32); CHLORIDE SERUM 110 mmol/L (98-107); CREATININE SERUM 0.9 mg/dL (0.7-1.3); GFR1 > 60 mL/min; GLUCOSE SERUM 106 mg/dL (74-106); POTASSIUM SERUM 3.6 mmol/L (3.5-5.1); SODIUM SERUM 140 mmol/L (136-145)
[2018-06-27 08:12] LABS: ALBUMIN 2.1 g/dL (3.4-5.0); TOTAL PROTEIN, SERUM 5.4 g/dL (6.4-8.2)
[2018-06-27 09:26] VITALS: BP 99/48
[2018-06-27 10:50] LABS: PLATELET COUNT 67 x10^3mcL (130-400); RED CELL DISTRIBUTION WIDTH 20.3 % (11.5-14.5)
[2018-06-27 12:37] VITALS: BP 107/66
[2018-06-27 12:38] VITALS: BP 107/66
[2018-06-27 13:36] VITALS: BP 107/66
[2018-06-27] MEDS ORDERED: IND10 PO (15:05)
[2018-06-27 15:40] VITALS: BP 107/66
== END 2018-06-27 17:10 | disposition home or self-care (01) | DRG 280 ==
LOC: ED 03:39 → DU 04:12 → IC 04:12 → DU 06-26 13:45
PROVIDERS: Emergency Medicine; Internal Medicine; Internal Medicine Gastroenterology; Internal Medicine Pulmonary Disease; ADMIT Internal Medicine Pulmonary Disease
PROC: 06L38CZ Occlusion of Esophageal Vein with Extraluminal Device, Via Natural or Artificial Opening Endoscopic (ICD-10-PCS; 2018-06-24)
PROC: 30233N1 Transfusion of Nonautologous Red Blood Cells into Peripheral Vein, Percutaneous Approach (ICD-10-PCS; 2018-06-24)
PROC: 30233K1 Transfusion of Nonautologous Frozen Plasma into Peripheral Vein, Percutaneous Approach (ICD-10-PCS; 2018-06-24)
PROC: 5A1945Z Respiratory Ventilation, 24-96 Consecutive Hours (ICD-10-PCS; principal; 2018-06-24 09:30)
PROC: 0BH17EZ Insertion of Endotracheal Airway into Trachea, Via Natural or Artificial Opening (ICD-10-PCS; 2018-06-24 09:30)
DX: K70.31 Alcoholic cirrhosis of liver with ascites (principal); J96.01 Acute respiratory failure with hypoxia; R57.8 Other shock; I85.11 Secondary esophageal varices with bleeding; I95.9 Hypotension, unspecified; K85.30 Drug induced acute pancreatitis without necrosis or infection; D68.9 Coagulation defect, unspecified; D69.59 Other secondary thrombocytopenia; E11.9 Type 2 diabetes mellitus without complications; D64.9 Anemia, unspecified; F10.20 Alcohol dependence, uncomplicated; E66.9 Obesity, unspecified; I10 Essential (primary) hypertension; K44.9 Diaphragmatic hernia without obstruction or gangrene; Y90.0 Blood alcohol level of less than 20 mg/100 ml; T46.4X5A Adverse effect of angiotensin-converting-enzyme inhibitors, initial encounter; Z91.19 Patient's noncompliance with other medical treatment and regimen; Z68.33 Body mass index [BMI] 33.0-33.9, adult; Y92.018 Other place in single-family (private) house as the place of occurrence of the external cause; Z79.84 Long term (current) use of oral hypoglycemic drugs; Z88.0 Allergy status to penicillin; Z79.899 Other long term (current) drug therapy
CPT/HCPCS: 43235; 82962; A4628; C9113; J0171; J0690; J2250; J2354; J2704; J2765; J2916; J3430; J3490; J7030; J7050; J7620; P9016; P9047; P9059; Q0092

== ENCOUNTER 2018-07-10 21:44 | Emergency (ER) | payer SELFPAY ==
[~2018-07-10] VITALS: Ht 177.8 cm; Wt 106.1 kg
[~2018-07-10 21:44] MED LIST changes: +FUROSEMIDE40 MG PO; +IND10 PO; +PROPRANOLOL HCL20 MG PO
[2018-07-10 22:14] VITALS: Ht 177.8 cm; Wt 106.1 kg
[2018-07-10 23:05] VITALS: BP 122/66
== END 2018-07-10 23:05 | disposition other institution (70) ==
LOC: ED 21:44
DX: M79.10 Myalgia, unspecified site (principal); I10 Essential (primary) hypertension; E11.9 Type 2 diabetes mellitus without complications; Z88.0 Allergy status to penicillin; Z88.8 Allergy status to other drugs, medicaments and biological substances; Z98.890 Other specified postprocedural states; Z87.19 Personal history of other diseases of the digestive system
CPT/HCPCS: J1885

== ENCOUNTER 2018-07-10 21:44 | Emergency (ER) | payer OTHER | END 2018-07-10 23:05 | disposition other institution (70) | LOC: ED 21:44 | DX: Z02.89 Encounter for other administrative examinations (principal) ==

== ENCOUNTER 2018-08-19 09:13 | Inpatient (IN) | payer MEDICAID ==
[~2018-08-19] VITALS: Ht 175.3 cm; Wt 115.9 kg
--- NOTE | 2018-08-19 09:39 | NUR ---
ABD ROUND AND DISTENDED AND FIRM. NO PAIN TO PALP AND NO MASSES FELT. HAS NAUSEA WITHOUT VOMITING FOR 1 WEEK. PT ALSO C/O URINARY RETENTION WITHOUT PAIN AND CLAIMS WHEN HE URINATES ONLY SMALL AMOUNTS COME OUT. PT HAS UPPER AND LOWER EXTREMITY PITTING EDEMA WITH SWELLING OF THE ORBITAL AREA AND OVERALL JUANDICED APPEARANCE. PT C/O 710 PAIN ONLY IN HISS UPPPER THIGH AREA BILATERALLY. PT IS ALERT AND ORIENTED WITH NO DISTRESS NOTED AND VSS AT THIS TIME. DR DUNLAP SAW PT
--- NOTE | 2018-08-19 09:44 | NUR ---
XRAY AT BEDSIDE
[2018-08-19] MEDS ORDERED: NEPHROCAPS QT1 ODT PO (09:53)
[2018-08-19] MEDS ORDERED: MULTIVITAMIN1 SGL PO (09:53)
[2018-08-19] MEDS ORDERED: LASIX40 MG PO (09:54)
[2018-08-19] MEDS ORDERED: ALDACTONE100 MG PO (09:57)
[2018-08-19] MEDS ORDERED: THERMACARE1 EACH MC (09:57)
[2018-08-19 10:48] LABS: CALCIUM 7.9 mg/dL (8.5-10.1); CARBON DIOXIDE 29.4 mmol/L (21-32); CHLORIDE SERUM 101 mmol/L (98-107); GFR1 > 60 mL/min; GLUCOSE SERUM 139 mg/dL (74-106); POTASSIUM SERUM 3.3 mmol/L (3.5-5.1); SODIUM SERUM 138 mmol/L (136-145)
[2018-08-19 10:53] LABS: ALKALINE PHOSPHATASE 141 U/L (46-116); ALT/SGPT 18 U/L (16-63); AST/SGOT 32 U/L (15-37); BILIRUBIN TOTAL 3.1 mg/dL (0.20-1.00); TOTAL PROTEIN, SERUM 7.5 g/dL (6.4-8.2)
[2018-08-19 10:54] LABS: ALBUMIN 2.6 g/dL (3.4-5.0)
[2018-08-19 10:55] LABS: BASOPHIL % 0.9 % (0-2)
[2018-08-19 11:04] LABS: PLATELET COUNT 106 x10^3mcL (130-400); RED CELL DISTRIBUTION WIDTH 19.7 % (11.5-14.5)
--- NOTE | 2018-08-19 11:19 | NUR ---
GAVE PT URINAL FOR URINE SAMPLE AT THIS TIME
--- NOTE | 2018-08-19 12:37 | NUR ---
REPORT GIVEN TO SARAH AND PT READY FOR TRANSFER TO TELE
[2018-08-19 12:43] LABS: microscopic required? NO
[2018-08-19 12:54] LABS: urine erythrocyte NEGATIVE (NEGATIVE)
--- NOTE | 2018-08-19 12:55 | NUR ---
RECEIVED FROM ER VIA ERNEY, SEEN AAOX4. NO RESP DISTRESS, BREATHING E/U ON ROOM AIR. TELE#10 INPLACED NSR WITH OCCATIONAL PVC'S. DENIES CHEST PAIN. ADMITS FOR GEN BODY WEAKNESS AND ANASARCA. STATED PAIN TO BILATERAL THIGH IS TOLERABLE, 3+EDEMA TO BLE AND PITTING EDEMA TO BUE, SWELLING TO ORBITAL AREA. ULTRASOUND ABDOMEN AT BEDSIDE ONGOING AT THIS TIME. ABD DISTEDNED AND FIRMED. STATED AMBULATORY AT HOME. S/L INTACT. ORIENTING TO ROOM ENVIRONMENT, CALL LIGHT PLACED WITHIN EASY REACH, SIDERAILS UP X2.
--- NOTE | 2018-08-19 13:00 | NUR ---
PT WAS RECEIVED BY PRIMARY NURSE SUPIN FROM ED AT 1244H. PT SEEN LYING IN BED, AAOX4. DENIES HEADACHE/DIZZINESS. NO SOB NOTED AT THIS TIME, LUNG SOUNDS CTA. DENIES CHEST PAIN/PRESSURE, SR ON THE MONITOR. DENIES ABDOMINAL PAIN/NAUSEA/VOMITING. ABDOMEN IS DISTENDED AND MILDLY FIRM. BOWEL SOUNDS ACTIVE. VOIDS. W/ +3 EDEMA ON BLE AND WEAK PEDAL PULSES. SIDE RAILS UPX2. CALL LIGHT ON REACH. MEDICAL CODING TECHNICIAN AT BEDSIDE. PRIMARY NURSE SUPIN AT BEDSIDE FOR CONTINUITY OF CARE
[2018-08-19 13:03] VITALS: BP 106/67
[2018-08-19 13:03] LABS: AMPHETAMINE QUAL UR NONE DETECTED (See below)
[2018-08-19 13:10] LABS: MAGNESIUM 1.3 mg/dL (1.8-2.4); PHOSPHOROUS 3.1 mg/dL (2.5-4.9)
[2018-08-19 13:11] VITALS: Ht 175.3 cm; Wt 115.9 kg
--- NOTE | 2018-08-19 13:25 | NUR ---
SEEN BY ARTHUR SHAHID AT BEDSIDE.
[2018-08-19 13:26] LABS: T3 TOTAL 0.62 ng/mL
--- NOTE | 2018-08-19 13:48 | NUR ---
ECHOCARDIOGRAM PENDING-DONE ABOUT TWO MONTHS AGO-COPY IN CHART
[2018-08-19 13:50] LABS: T4(THYROXINE) 4.7 ug/dL (4.7-13.3)
--- NOTE | 2018-08-19 14:09 | NUR ---
ECHOCARDIOGRAM PENDING-HAVING ULTRASOUND
--- NOTE | 2018-08-19 14:11 | NUR ---
ULTRASOUND PLEURAL EFFUSION AT BEDSIDE ONGOING. NO RESP DISTRESS NOTED. KEPT NPO, PATIENT MADE AWARE. MG =1.3, K =3.3, DOCTOR MARILU NOTIFIED.
[2018-08-19 14:17] LABS: FREE T4 0.98 ng/dL (0.76-1.46); FREE THYROXINE INDEX 1.6 ug/dL (1.4-4.5)
[2018-08-19 18:09] VITALS: BP 101/70
--- NOTE | 2018-08-19 19:16 | NUR ---
RESTING WITH EYES CLOSED. TOLERATED TO FULL LIQUID DINNER WELL. MG RIDER 2GM INFUSING WELL TO RAC IV SITE.
--- NOTE | 2018-08-19 19:40 | NUR ---
RECEIVED PT AOX4, ABLE TO RESPONDS TO COMMANDS AND MAKE NEEDS KNOWN. NO REPORT OF O[place]LL SPEECH CLEAR.TRACHEA MIDLINE, NO DRAINAGE TO EENT. NO EENT COMPLAINTS. LUNG SOUNDS CLEAR BILATERALLY, ROOM AIR, CHEST RISE/FALL SYMEMTRIC, E/U BREATHING, NO ACUTE RESP DISTRESS, DENIES SOB.S1/S2 SOUNDS HEARD, NO REPORT OF CHEST PAIN. CAP REFILL <3 SECONDS, PULSES MODERATE TO BUE, WEAK TO BLE. EDEMA TO BLE +3 PITTING. TRACE TO BUE. GEN WEAKNESS, NO CONTRACTURES/DEFORMITIES. NO JOINT SWELLING OR TENDERNESS.NO S/S OF N/V.ACTIVE BOWEL SOUNDS X4, ABD SOFT /ROUND.PT ABLE TO VOID FREELY, ERICK URINE NOTED BEDSIDE URINAL. SKIN DRY AND INTACT, WARM TO TOUCH. IV TO RAC, PORT PATENT, NO S/S OF INFILTRATION, DRESSING CDI.
--- NOTE | 2018-08-19 19:40 | NUR ---
US TECH CALLED REGARDING US GUIDED THORACENTESIS WILL BE SCHEDULED 08/21.
[2018-08-19 21:30] VITALS: BP 98/47
--- NOTE | 2018-08-20 00:44 | NUR ---
PT SLEEPING, BUT EASILY AROUSABLE AT THIS TIME. PT REPORTS NO PAIN OR DISCOMFORT AT THIS TIME. RAC IV PORT PATENT, NO S/S OF INFILTRATION, DRESSING CDI.
--- NOTE | 2018-08-20 03:31 | NUR ---
PT SLEEPING, BUT EASILY AROUSABLE AT THIS TIME. PT REPORTS NO PAIN OR DISCOMFORT AT THIS TIME. NO ACUTE RESP DISTRESS, RAC IV PORT PATENT, NO S/S OF INFILTRATION, DRESSING CDI.
[2018-08-20 05:23] VITALS: BP 96/58
--- NOTE | 2018-08-20 05:37 | NUR ---
WHEN ENTERING ROOM, PT SLEEPING AND SNORING, BUT EASILY AROUSABLE AT THIS TIME. PT REPORTS NO PAIN OR DISCOMFORT AT THIS TIME, CHEST RISE/FALL SYMMETRIC, E/U BREATHING NOTED. NO ACUTE RESP DISTRESS, RAC IV PORT PATENT, NO S/S OF INFILTRATION, DRESSING CDI.
[2018-08-20 06:44] LABS: CALCIUM 7.8 mg/dL (8.5-10.1); CARBON DIOXIDE 29.2 mmol/L (21-32); CHLORIDE SERUM 101 mmol/L (98-107); CREATININE SERUM 1.1 mg/dL (0.7-1.3); GFR1 > 60 mL/min; GLUCOSE SERUM 116 mg/dL (74-106); MAGNESIUM 1.8 mg/dL (1.8-2.4); POTASSIUM SERUM 3.6 mmol/L (3.5-5.1); SODIUM SERUM 137 mmol/L (136-145)
--- NOTE | 2018-08-20 07:15 | NUR ---
GAVE REPORT TO FRANCISCA SALVADOR. UPDATES PROVIDED, QUESTIONS ANSWERED.
--- NOTE | 2018-08-20 07:21 | NUR ---
REPORT TAKEN FROM BRIQUETTE MOLDER NURSE, PT AWAKE AND ALERT, ORIENTED X 4. DENIED PAIN AT THIS TIME, WILL COMPLETE ASSESSMENT IN CHART.
[2018-08-20 08:02] LABS: BASOPHIL % 1.1 % (0-2)
[2018-08-20 08:03] LABS: PLATELET COUNT 111 x10^3mcL (130-400); RED CELL DISTRIBUTION WIDTH 19.3 % (11.5-14.5)
[2018-08-20 08:36] VITALS: BP 99/58
--- NOTE | 2018-08-20 10:19 | NUR ---
PT RESTING, SLEEPING AT THIS TIME. TOOK MORNING MEDICATIONS WELL, ADVISED TO CALL NURSE IF HE NEEDS TO USE THE RESTROOM OR GET OUT OF BED, PT VERBALIZED UNDERSTANDING, WILL CONTINUE TO MONITOR.
[2018-08-20 12:52] VITALS: BP 99/63
[2018-08-20 17:04] VITALS: BP 105/63
--- NOTE | 2018-08-20 18:24 | NUR ---
PT TOLERATED TREATMENT WELL DURING THE SHIFT, DENIED PAIN, RESTING COMFORTABLY AT THIS TIME. NO NEW EVENTS TO REPORT TO NIGHTN SHIFT NURSE, WILL ENDORSE CARE TO HAMMERER TAB NURSE AT CHANGE OF SHIFT.
--- NOTE | 2018-08-20 20:19 | NUR ---
PT CURRENTLY RESTING IN BED, NO ACUTE DISTRESS. A/O X4. TELE #10 SHOWING SINUS RHYTHM, DENIES CHEST PAIN. PULSES PALPABLE IN ALL EXTREMITIES, BLE EDEMA 3+ AND BUE TRACE EDEMA NOTED. LUNG SOUNDS DIMINISHED IN BILATERAL BASES, DENIES SOB. BOWEL SOUNDS ACTIVE, LAST BM 08/20/18. ASCITES, ABD ROUND AND FIRM. VOIDING WELL. GENERALIZED WEAKNESS, AMBULATORY WITH ASSIST. INTERMITTENT BLE PAIN 10/09, PT REFUSING MEDICATION AT THIS TIME. IV PATENT AND INTACT. BED IN LOWEST POSITION, SIDE RAILS UP X2, CALL LIGHT WITHIN REACH. WILL CONTINUE TO MONITOR.
[2018-08-20 20:39] VITALS: BP 109/61
[2018-08-20 20:41] VITALS: BP 135/68
[2018-08-21] VITALS (10 sets, daily range): BP systolic 100–108; BP diastolic 59–71
--- NOTE | 2018-08-21 00:38 | NUR ---
PT CURRENTLY RESTING IN BED, NO ACUTE DISTRESS. WILL CONTINUE TO MONITOR.
--- NOTE | 2018-08-21 06:15 | NUR ---
PT SLEPT PERIODICALLY THROUGHOUT NIGHT, NO ACUTE DISTRESS. ALL NEEDS MET AND ATTENDED TO. NO SIGNIFICANT CHANGES. IV PATENT AND INTACT. MEDICATED PAIN PER EMAR. BED IN LOWEST POSITION, SIDE RAILS UP X2, CALL LIGHT WITHIN REACH. WILL ENDORSE CARE TO ONCOMING NURSE.
[2018-08-21 06:29] LABS: CARBON DIOXIDE 28.2 mmol/L (21-32); CHLORIDE SERUM 100 mmol/L (98-107); CREATININE SERUM 1.1 mg/dL (0.7-1.3); GFR1 > 60 mL/min; GLUCOSE SERUM 113 mg/dL (74-106); POTASSIUM SERUM 3.7 mmol/L (3.5-5.1); SODIUM SERUM 137 mmol/L (136-145)
[2018-08-21 07:01] LABS: BASOPHIL % 1.1 % (0-2)
[2018-08-21 07:04] LABS: PLATELET COUNT 113 x10^3mcL (130-400); RED CELL DISTRIBUTION WIDTH 18.4 % (11.5-14.5)
--- NOTE | 2018-08-21 07:35 | NUR ---
THE PATIENT AWAKE AND ORIENTED TO PERSON, PLACE AND TIME. PATIENT DENIED NAUSEA/VOMITING OR SHORTNESS OF BREATH. PATIENT STATED HAVING MILD BURNING PAIN TO BLE BUT TOLERABLE AT THIS TIME. WILL MEDICATE FOR PAIN PRN. IV SITE TO RAC INTACT. TELE # 10 READS SINUS RHYTHMS AT THIS TIME. CALL LIGHT WIHIN REACH. SIDE RAILS UP X3. BED WAS AT LOWEST POSITION.
--- NOTE | 2018-08-21 14:25 | NUR ---
THORACENTESIS WAS DONE AT BEDSIDE BY RADIOLOGIST AND RAD RN, SCOTT. 550 ML OF OUTPUT FROM LEFT SIDE WAS REPORTED BY FRANCISCA CHAVEZ. THE VS CHECKED. THE PATIENT WAS CHECKED AND SAID, "I AM OK. SOME PAIN TO THE SITE BUT TOLERABLE NOW."
--- NOTE | 2018-08-21 16:06 | NUR ---
Discount pharmacy card and list to low cost medical clinics given to patient by Sylvester Florez.
[2018-08-21 17:18] LABS: APPEARANCE FLUID CLEAR; COLOR FLUID YELLOW; RBC FLUID 3266 /cumm; SOURCE FLUID PLEURAL; WBC FLUID 6.7 /cumm
[2018-08-21 17:20] LABS: SOURCE FLUID PLEURAL
--- NOTE | 2018-08-21 18:34 | NUR ---
THE PATIENT WAS RESTING IN BED WITH BLE ELEVATED. PATIENT STATED FEELING BETTER S/P THORACENTESIS; THE PATIENT DENIED ANY PAIN AT THE THORACENTESIS SITE. THE FAMILY MEMBERS AT BEDSIDE AND WAS UPDATED PLAN OF CARE WITH AGREEMENT OF THE PATIENT.
--- NOTE | 2018-08-21 19:30 | NUR ---
PT A/O X4. ON TELE #10, NSR. DENIES ANY CHEST PAIN OR PRESSURE. WEAK PEDIAL PULSES. +3 BLE EDEMA, ELEVATED ON PILLOWS. TRACE EDEMA ON BUE. LUNGS CLEAR IN ALL FEILDS. ON 2L NC. DENIES ANY SOB. EQUAL CHEST RISE AND FALL. NO SIGN OF RESP DISTRESS. BOWEL SOUNDS PRESENT. PT C/O LOOSE STOOLS. SKIN WARM AND INTACT. DENIES ANY PAIN AT THIS TIME. IV ON RAC INTACT AND CLEAN. BED IS AT LOWEST SETTING. CALL LIGHT WITHIN REACH. WILL CONTINUE TO MONTIOR.
--- NOTE | 2018-08-21 22:30 | NUR ---
MD PATRICIO WAS MADE AWARE OF PT NEW ADMIT ORDERS FROMF MD MICHEL, TELE TO [facility]. RECIEVED TELE ORDERS FROM MD PATRICIO TO PLACE BACK TO TELE. CHARGE NURSE IS AWARE.
--- NOTE | 2018-08-22 00:39 | NUR ---
PT IS RESTING IN BED WITH BOTH EYES CLOSED. BREATHING EVEN AND UNALBORED. NO SIGN OF DISTRESS NOTED. BLE ELEVATED ON PILLOWS. BED IS AT LOWEST SETTING. CALL LIGHT WITHIN REACH. WILL CONTINUE TO MONITOR.
[2018-08-22 04:46] VITALS: BP 105/65
--- NOTE | 2018-08-22 06:51 | NUR ---
PT IS RESTING IN BED WITH BOTH EYES CLOSED. NO SIGN OF DISTRESS NOTED. IV INTACT. NO ACUTE EVENT OCCURED AT NIGHT. BLE ELEVATED ON PILLOWS. BED AT LOWEST SETTING. CALL LIGHT WITHIN REACH. WILL ENDORSE TO AM NURSE.
[2018-08-22 06:55] LABS: CALCIUM 8.2 mg/dL (8.5-10.1); CARBON DIOXIDE 30.8 mmol/L (21-32); CHLORIDE SERUM 99 mmol/L (98-107); CREATININE SERUM 1.1 mg/dL (0.7-1.3); GFR1 > 60 mL/min; GLUCOSE SERUM 105 mg/dL (74-106); POTASSIUM SERUM 3.7 mmol/L (3.5-5.1); SODIUM SERUM 136 mmol/L (136-145)
[2018-08-22 06:59] LABS: BASOPHIL % 0.5 % (0-2)
[2018-08-22 07:31] LABS: PLATELET COUNT 101 x10^3mcL (130-400); RED CELL DISTRIBUTION WIDTH 19.3 % (11.5-14.5)
[2018-08-22 09:45] VITALS: BP 107/65
[2018-08-22 13:58] VITALS: BP 105/59
[2018-08-22 15:58] VITALS: BP 96/60
--- NOTE | 2018-08-22 18:00 | NUR ---
pATIENT HAS HAD UNEVENTFUL DAY. STATES HE HAS VOIDED X 7. CONTINUES TO COMPLAIN THAT HE IS NOT GETTING REAL FOOD AND STATES THAT IF HE IS NOT ALLOWED TO EAT TOMMORROW HE WILL SIGN OUT OF HOSPITAL AMA.
--- NOTE | 2018-08-22 19:30 | NUR ---
PT IS A/O X4. ON TELE #10, NSR. DENIES ANY CHEST PAIN OR PRESSURE. PULSES ARE PRESENT. NO EDEMA NOTED. WEAK PEDIAL PULSES. MOD RADIAL PULSES. EDEMA: +2 ON BLE, TRACE RUE, AND +1 ON LUE. EXTREMITIED ELEVATED WITH A PILLOW. LUNGS CLEAR IN ALL FEILDS. ON RA, SAVI ANY SOB. EQUAL CHEST RISE AND FALL. NO SIGN OF RESP DISTRESS. BOWEL SOUNDS PRESENT x4. ABD IS SOFTLY DISTENDED WITH BELLY BUTTON PROTUDING. SKIN WARM AND INTACT. DENIES ANY PAIN AT THIS TIME. SALINE LOCKED ON RAC, INTACT AND PATENT. BED IS AT LOWEST SETTING. CALL LIGHT WITHIN REACH. SIDE RAILS UP X2 FOR PT SAFETY. WILL CONTINUE TO MONTIOR.
--- NOTE | 2018-08-22 20:14 | NUR ---
MD PATRICIO WAS NOTIFIED ON MD MARILU ADMIT ORDER TO MED SURG. MD PATRICIO INPUT ORDERS TO TRANSFER PT TO MED SURG. TELE #10 WAS REMOVED AND RETURNED TO TELE MONITOR. WILL CONTINUE TO MONITOR.
--- NOTE | 2018-08-22 20:36 | NUR ---
PT IS ON A REG DIET NOW. SNACK WAS PROVIDED.
[2018-08-22 20:56] VITALS: BP 106/52
[2018-08-23 06:04] VITALS: BP 115/61
[2018-08-23 06:19] LABS: CALCIUM 8.4 mg/dL (8.5-10.1); CARBON DIOXIDE 30.2 mmol/L (21-32); CHLORIDE SERUM 99 mmol/L (98-107); CREATININE SERUM 1.1 mg/dL (0.7-1.3); GFR1 > 60 mL/min; GLUCOSE SERUM 120 mg/dL (74-106); SODIUM SERUM 134 mmol/L (136-145)
[2018-08-23 06:30] LABS: PLATELET COUNT 108 x10^3mcL (130-400); RED CELL DISTRIBUTION WIDTH 19.5 % (11.5-14.5)
--- NOTE | 2018-08-23 07:02 | NUR ---
PT IS RESTING IN BED. NO SIGN OF DISTRESS NOTED. NO ACUTE EVENT OCCURED AT NIGHT. BED IS AT LOWEST SETTING. CALL LIGHT WITHIN REACH. WILL ENDORSE TO AM NURSE.
--- NOTE | 2018-08-23 07:12 | NUR ---
RECEIVED PATIENT FROM DEVELOPMENT VICE PRESIDENT NURSE. PATIENT IS RESTING WITH BOTH EYES CLOSED, AROUSABLE. ON ROOM AIR, BREATHING EVEN AND UNLABORED. BUE AND BLE ELEVATED ON PILLOWS. IV NOTED TO RAC, SALINE LOCKED, NO S/S ERYTHEMA AT SITE. CALL LIGHT WITHIN EASY REACH. WILL CONTINUE PLAN OF CARE.
[2018-08-23 08:12] VITALS: BP 141/62
[2018-08-23 11:44] VITALS: BP 110/58
--- NOTE | 2018-08-23 13:29 | NUR ---
PATIENT RESTING PEACEFULLY IN BED. DENIES PAIN AND DISCOMFORT. DENIES SOB ON ROOM AIR. WILL CONTINUE TO MONITOR.
[2018-08-23 15:05] LABS: BAND NEUTROPHIL 0 % (0-10); BASOPHIL 1 % (0-2); MONOCYTE 6 % (0-7); SEGMENTED NEUTROPHILS 79 % (37-75)
[2018-08-23 15:07] LABS: PLATELET MORPHOLOGY PLATELETS DECREASED; rbc morphology (normal/abnorm) ABNORMAL (NORMAL)
--- NOTE | 2018-08-23 15:16 | NUR ---
PATIENT REQUESTING LACTULOSE TO BE INCREASED TO TID. WILL NOTIFY DR HARRELL REGARDING PATIENTS CONCERNS WITH MEDICATION.
[2018-08-23 16:09] VITALS: BP 109/63
--- NOTE | 2018-08-23 18:43 | NUR ---
PATIENT RESTING EASY IN BED. NO C/O PAIN OR DISCOMFORT AT THIS TIME. PATIENT UPDATED ON LAVTULOSE TO BE GIVEN TID. VERBALIZES UNDERSTANDING. PATIENT CARE TO BE ENDORSED TO RESEARCH ASSOCIATE PROFESSOR NURSE.
--- NOTE | 2018-08-23 19:15 | NUR ---
AOX4. MED SURG. LUNGS CLEAR ON RA. PULSES PALPABLE. EDEMA NOTED TO BUE L>R, AND BLE. BOWEL SOUNDS ACTIVE. VOIDS FREELY. AMBULATORY. SKIN INTACT. DENIES PAIN. SL TO RAC, PATENT, CDI. BED IN LOWEST POSITION, 2 SIDE RAILS UP, CALL LIGHT IN REACH. INSTRUCTED TO CALL FOR ASSISTANCE.
[2018-08-23 20:40] VITALS: BP 92/55
--- NOTE | 2018-08-24 01:40 | NUR ---
RESTING IN BED WITH EYES CLOSED. BREATHING EVEN AND UNLABORED. NO ACUTE DISTRESS NOTED. WILL CONTINUE TO MONITOR.
[2018-08-24 05:32] VITALS: BP 97/60
--- NOTE | 2018-08-24 06:01 | NUR ---
NO ACUTE CHANGES. WILL ENDORSE TO ONCOMING RN
[2018-08-24 06:24] LABS: CALCIUM 8.4 mg/dL (8.5-10.1); CARBON DIOXIDE 28.1 mmol/L (21-32); CHLORIDE SERUM 101 mmol/L (98-107); CREATININE SERUM 1.1 mg/dL (0.7-1.3); GFR1 > 60 mL/min; GLUCOSE SERUM 130 mg/dL (74-106); POTASSIUM SERUM 3.7 mmol/L (3.5-5.1); SODIUM SERUM 138 mmol/L (136-145)
--- NOTE | 2018-08-24 07:12 | NUR ---
RECEIVED PATIENT FROM PANTS PRESSER NURSE. PATIENT IS AWAKE, ALERT AND ORIENTED. DENIES PAIN AND SOB AT THIS TIME. STRICT 1/O'S IN PLACE. FALL PREC IN PLACE. IV NOTED TO RAC, SALINE LOCKED, NO S/S ERYTHEMA AT SITE. CALL LIGHT WITHIN EASY REACH. WILL CONTINUE PLAN OF CARE.
[2018-08-24 08:08] LABS: BASOPHIL % 1.1 % (0-2)
[2018-08-24 08:09] LABS: PLATELET COUNT 115 x10^3mcL (130-400); RED CELL DISTRIBUTION WIDTH 19.6 % (11.5-14.5)
[2018-08-24 08:39] VITALS: BP 100/61
--- NOTE | 2018-08-24 13:23 | NUR ---
1. Recommend changing current diet order to [facility] since pt has PMH of DM
--- NOTE | 2018-08-24 13:23 | NUR ---
Initial Nutrition Assessment- 250/A NATHALIE MENON MR Dx: Cirrhosis, Anasarca PMHx: HTN, Anemia, varices, cirrhosis, hemorrhoids, GI bleed, DM PSHx: EGD Labs: (08/24) BG 130H Meds: aldactone, Colace, ferrous sulfate, Lasix, Theregran, zofran Diet: Regular PO Intake: (08/24) 80% breakfast, (08/23) 100% dinner Ht: 175.26 cm (69") Wt: 115.8kg (253#) BMI: 37.7 kg/m2 (obesity) IBW: 160# (73 kg) %IBW: 158 UBW: unable to obtain Age: 47/M Food Allergies: NKFA Skin: intact [place]: 19 Edema: generalized edema GI: last BM: 08/23 Per H&P, Pt is a 39-year-old male past medical history significant for end-stage liver disease and cirrhosis presents with complaint of diffuse body swelling and shortness of breath. Patient denies he chest pain, fevers, chills, hemoptysis, night sweats, weight loss. Symptoms are moderate in severity nothing seems to make it better worse provoking event appears to be cirrhosis. Thoracentesis was performed on 08/19. RDN visit (08/24): Pt was sleeping. Information was obtained from RN Verito. She said that pt is eating well and does not have any N/V at this time. Pt is on lactulose and therefore has frequent stools however not diarrhea. Per documentation, pt has been consuming >75% of meals. Problem with: N: no V: no D: no C: no Problems with: Chewing: no Swallowing: no Current appetite: good Recent wt change: unable to access Vitamin/Supplement use: unable to access Special diet at home: unable to access Physical activity: unable to access Education: No diet education provided at this time since pt was sleeping. Estimated Nutritional Needs Based on ideal body weight 73 kg Energy: 9446-4680 kcal/d ( 25-35 kcal/kg-cirrhosis) Protein: 73-88 g/d (1.0-1.2 g/kg)-cirrhosis and preservation of lean body mass Fluid: Per (Vijay) Nutrition Diagnosis 1. Impaired nutrient utilization related to endocrine dysfunction (liver cirrhosis)/DM as evidenced by vijay and BG level 130, A1C 6.0. Intervention 1. Recommend [facility] has PMH of DM Monitor/Evaluate Goal: PO intake at least 75% of estimated needs Monitor: PO intake, Labs, GI function F/U in 3-5 days as moderate risk
--- NOTE | 2018-08-24 14:00 | NUR ---
PATIENT RESTING EASY. DENIES PAIN AND DISCOMFORT. CALL LIGHT WITHIN EASY REACH. WILL CONTINUE PLAN OF CARE.
[2018-08-24 16:40] VITALS: BP 107/59
--- NOTE | 2018-08-24 19:15 | NUR ---
PATIENT RESTING PEACEFULLY. NO ACUTE DISTRESS. PATIENT CARE ENDORSED TO MANAGER RENTAL NURSE.
[2018-08-24 20:47] VITALS: BP 105/63
--- NOTE | 2018-08-25 03:14 | NUR ---
RESTING IN BED WITH EYES CLOSED. BREATHING EVEN AND UNLABORED. NO ACUTE DISTRESS NOTED. WILL CONTINUE TO MONITOR.
[2018-08-25 05:23] VITALS: BP 110/64
--- NOTE | 2018-08-25 06:14 | NUR ---
IMPROVED EDEMA TO BUE AND BLE. NO OTHER ACUTE CHANGES. WILL ENDORSE TO ONCOMING RN.
[2018-08-25 06:43] LABS: CALCIUM 8.4 mg/dL (8.5-10.1); CARBON DIOXIDE 27.7 mmol/L (21-32); CHLORIDE SERUM 102 mmol/L (98-107); GFR1 > 60 mL/min; GLUCOSE SERUM 110 mg/dL (74-106); POTASSIUM SERUM 3.7 mmol/L (3.5-5.1); SODIUM SERUM 138 mmol/L (136-145)
[2018-08-25 07:03] LABS: PLATELET COUNT 123 x10^3mcL (130-400); RED CELL DISTRIBUTION WIDTH 19.3 % (11.5-14.5)
--- NOTE | 2018-08-25 07:18 | NUR ---
RECEIVED PT FROM SHIFT NURSE A/OX4. APPEARS IN NO ACUTE DISTRESS. RESP EVEN AND UNLABORED ON RA. HEPLOCK PATENT. BED IN LOW POSITION. CALL LIGHT WITHIN REACH. WILL CONTINUE TO MONITOR.
[2018-08-25 09:45] VITALS: BP 98/48
--- NOTE | 2018-08-25 10:26 | NUR ---
PT ASLEEP BUT AROUSABLE. NO ACUTE DISTRESS NOTED. CALL LIGHT WITHIN REACH. WILL CONTINUE TO MONITOR.
--- NOTE | 2018-08-25 12:40 | NUR ---
PT SITTING UP EATING LUNCH. DENIES ANY LEG PAIN AT THIS TIME. BED IN LOW POSITION. CALL LIGHT WITHIN REACH. WILL CONTINUE TO MONITOR.
[2018-08-25 13:42] VITALS: BP 109/57
[2018-08-25 13:43] LABS: ATYPICAL LYMPH 3 %; BAND NEUTROPHIL 0 % (0-10); BASOPHIL 0 % (0-2); MONOCYTE 5 % (0-7); SEGMENTED NEUTROPHILS 69 % (37-75)
[2018-08-25 13:44] LABS: rbc morphology (normal/abnorm) ABNORMAL (NORMAL)
[2018-08-25 13:45] LABS: PLATELET MORPHOLOGY PLATELETS DECREASED
--- NOTE | 2018-08-25 15:13 | NUR ---
PT ASLEEP BUT AROUSABLE. NO ACUTE DISTRESS NOTED. BOTH FEET ELEVATED ON PILLOWS. BED IN LOW POSITION. CALL LIGHT WITHIN REACH. WILL CONTINUE TO MONITOR.
[2018-08-25 17:20] VITALS: BP 102/58
--- NOTE | 2018-08-25 18:15 | NUR ---
PT SITTING UP IN BED EATING DINNER. NO ACUTE DISTRESS NOTED. DENIES ANY LEG PAIN. BOTH FEET ELEVATED ON PILLOWS. HEPLOCK PATENT. BED IN LOW POSITION. CALL LIGHT WITHIN REACH. WILL BE ENDORSED.
--- NOTE | 2018-08-25 19:30 | NUR ---
RECIEVED PATIENT AT START OF SHIFT A/O X4. NO SOB ON RA. DENIES PAIN. =2 PITTING EDEMA NOTED TO BLE. ABDOMEN IS FIRM AND DISTENDED. BS ACTIVE. SCROTAL EDEMA NOTED. PATIENT IS AMBULATORY. IV TO RAC SALINE LOCKED AND PATENT. BED LOCKED AND IN LOWEST POSITION. CALL LIGHT AND BEDSIDE TABLE WITHIN REACH. WILL CONTINUE TO MONITOR.
[2018-08-25 20:50] VITALS: BP 116/72
--- NOTE | 2018-08-25 22:10 | NUR ---
PATIENT REPORTED 8/10 BILATERAL LEG PAIN. PATIENT MEDICATED WITH NORCO PER EMAR.
--- NOTE | 2018-08-26 01:30 | NUR ---
PATIENT'S EYES ARE CLOSED, BRETAHS EVEN, NO SIGNS OF DISTRESS. CALL LIGHT WITHIN REACH.
[2018-08-26 05:15] VITALS: BP 98/55
--- NOTE | 2018-08-26 06:00 | NUR ---
LASIX IV WAS HELD DUE TO LOW BP OF 96/48.
[2018-08-26 06:15] LABS: PLATELET COUNT 133 x10^3mcL (130-400)
[2018-08-26 06:24] LABS: RED CELL DISTRIBUTION WIDTH 19.1 % (11.5-14.5)
--- NOTE | 2018-08-26 06:52 | NUR ---
NO FURTHER SIGNIFICANT EVENTS THIS SHIFT. WILL ENDORSE CARE TO MORNING NURSE.
[2018-08-26 06:53] LABS: CALCIUM 8.3 mg/dL (8.5-10.1); CARBON DIOXIDE 26.8 mmol/L (21-32); CHLORIDE SERUM 102 mmol/L (98-107); GFR1 > 60 mL/min; GLUCOSE SERUM 96 mg/dL (74-106); POTASSIUM SERUM 3.6 mmol/L (3.5-5.1); SODIUM SERUM 139 mmol/L (136-145)
--- NOTE | 2018-08-26 07:13 | NUR ---
RECEIVED PT FROM SHIFT NURSE ASLEEP BUT AROUSABLE. NO ACUTE DISTRESS NOTED. BOTH FEET ELEVATED. HEPLOCK PATENT. BED IN LOW POSITION. CALL LIGHT WITHIN REACH. WILL CONTINUE TO MONITOR.
[2018-08-26 08:58] VITALS: BP 99/53
--- NOTE | 2018-08-26 10:13 | NUR ---
PT RESTING IN BED AND NO ACUTE DISTRESS. DENIES LEG PAIN AT THIS TIME. CALL LIGHT WITHIN REACH. WILL CONTINUE TO MONITOR.
[2018-08-26] MEDS ORDERED: FER300 PO (12:14)
[2018-08-26] MEDS ORDERED: ALD50 PO (12:14)
[2018-08-26] MEDS ORDERED: LAC30L PO (12:15)
[2018-08-26 12:54] VITALS: BP 103/55
[2018-08-26 13:15] VITALS: BP 103/55
--- NOTE | 2018-08-26 13:42 | NUR ---
PT C/O OF LEG PAIN 11/08. GAVE NORCO ORDERED. WILL CONTINUE TO MONITOR
--- NOTE | 2018-08-26 14:00 | NUR ---
PT A/OX4 UPON DC. NO ACUTE DISTRESS NOTED. DENIES ANY LEG PAIN AT THIS TIME. NEW RX GIVEN. FOLLOW UP APT GIVEN. EDUCATION PROVIDED. PT VERBALIZED UNDERSTANDING. IV REMOVED AND CATH INTACT. PERSONAL BELONGINGS TAKEN HOME. INFORMED PT TO NOTIFY NURSES STATION BEFORE LEAVING.
== END 2018-08-26 14:21 | disposition home or self-care (01) | DRG 280 ==
LOC: ED 09:13 → DU 12:12 → MU 12:12 → EDBEDREQ 12:32 → DU 12:48 → MU 08-22 20:23
PROVIDERS: Emergency Medicine; General Practice; Podiatrist Foot & Ankle Surgery; ADMIT Family Medicine
PROC: 0W9B3ZZ Drainage of Left Pleural Cavity, Percutaneous Approach (ICD-10-PCS; principal; 2018-08-19)
DX: K70.31 Alcoholic cirrhosis of liver with ascites (principal); J91.8 Pleural effusion in other conditions classified elsewhere; I85.00 Esophageal varices without bleeding; E44.0 Moderate protein-calorie malnutrition; D64.9 Anemia, unspecified; E11.9 Type 2 diabetes mellitus without complications; E66.9 Obesity, unspecified; F10.10 Alcohol abuse, uncomplicated; I10 Essential (primary) hypertension; Z71.3 Dietary counseling and surveillance; Z68.34 Body mass index [BMI] 34.0-34.9, adult; Z91.19 Patient's noncompliance with other medical treatment and regimen
CPT/HCPCS: 32555; 82962; 83880; 84439; 87116; 87206; C1729; J1940; J2270; J3475; J3490; J7050; Q0092

== ENCOUNTER 2018-08-30 20:23 | Inpatient (IN) | payer MEDICAID ==
[~2018-08-30] VITALS: Ht 175.3 cm; Wt 112.0 kg
[~2018-08-30 20:23] MED LIST changes: +ALD50 PO; +ALDACTONE100 MG PO; +FER300 PO; +LASIX40 MG PO; +MULTIVITAMIN1 SGL PO; +NEPHROCAPS QT1 ODT PO; +THERMACARE1 EACH MC
[2018-08-30 21:05] VITALS: Ht 175.3 cm; Wt 112.0 kg
--- NOTE | 2018-08-30 21:08 | NUR ---
PT BIB [facility] [address] ACCOMPANIED BY [employer], PER MEDIC PT WAS PULLED OVER FOR DRIVING WITH ETOH [employer] WITH C/O GENERALIZED WEAKNESS. PT WAS NOTED TO HAVE A DISTENDED ABDOMEN AND BILTARAL EDEMA TO LOWER EXTREMITIES. PER MEDIC PT HAS HX OF DM AND LOVER CIRRHOSIS. PT IS AAOX4, WITH SLURRED SPEECH, RESP E/U. PT HAS BILATERAL EDEMA TO LOWER EXTREMITIES, DISTENDED FIRM ABDOMEN, SKIN INTACT, WARM AND DRY. PT REPORTS NAUSEA AT THIS TIME. ETOH SMELL IS ON NOTED ON PATEINT'S BREATH. PT ADMITS TO DRINKING ALCOHOL [employer] EXEC[employer]. PT PLACED ON FULL CM, VSS, NSR. [place] [employer] AT BEDSIDE. AWAITING MSE BY .
--- NOTE | 2018-08-30 21:10 | NUR ---
DR HOOPER AT BEDSIDE PERFORMING MSE ON PATIENT.
[2018-08-30 21:49] LABS: BASOPHIL % 0.6 % (0-2); PLATELET COUNT 244 x10^3mcL (130-400); RED CELL DISTRIBUTION WIDTH 19.4 % (11.5-14.5)
[2018-08-30 22:01] LABS: CALCIUM 7.8 mg/dL (8.5-10.1); CARBON DIOXIDE 19.9 mmol/L (21-32); CREATININE SERUM 1.9 mg/dL (0.7-1.3); POTASSIUM SERUM 3.8 mmol/L (3.5-5.1)
--- NOTE | 2018-08-30 22:01 | NUR ---
GAVE PATIENT URINAL TO USE. OBTAINED URINE SAMPLE AND SENT TO THE LAB.
[2018-08-30 22:07] LABS: BILIRUBIN TOTAL 1.53 mg/dL (0.20-1.00); TOTAL PROTEIN, SERUM 7.8 g/dL (6.4-8.2)
[2018-08-30 22:09] LABS: ALBUMIN 2.6 g/dL (3.4-5.0)
[2018-08-30 22:21] LABS: microscopic required? YES
[2018-08-30 22:22] LABS: UA SPECIFIC GRAVITY 1.025 (1.005-1.035)
[2018-08-30 22:23] LABS: urine erythrocyte NEGATIVE (NEGATIVE)
[2018-08-30 22:27] LABS: AMPHETAMINE QUAL UR NONE DETECTED (See below)
--- NOTE | 2018-08-30 22:51 | NUR ---
MED REC AND BELINGINGS LIST DONE.
[2018-08-30 22:53] LABS: MAGNESIUM 2.1 mg/dL (1.8-2.4); PHOSPHOROUS 4.1 mg/dL (2.5-4.9)
[2018-08-30 22:55] LABS: CHOLESTEROL/HDL RATIO 4.1
--- NOTE | 2018-08-30 23:00 | NUR ---
[place] [facility] LEFT BEDSIDE. RELEASED PT SINCE. PT IS IN NO DISTRESS, RESP E/U. WILL CONT TO MONITOR.
[2018-08-30 23:05] LABS: FREE T4 0.98 ng/dL (0.76-1.46); FREE THYROXINE INDEX 1.5 ug/dL (1.4-4.5); T4(THYROXINE) 4.7 ug/dL (4.7-13.3)
--- NOTE | 2018-08-30 23:19 | NUR ---
MEDICATED PT PER MD ORDERS, PT TOLERATED WELL. NO SIGNS OF DISTRESS,PT AAOX4 WITH SLURRED SPEECH, RESP E/U. WILL CONT TO MONITOR.
--- NOTE | 2018-08-30 23:34 | NUR ---
GAVE REPORT TO KASSY ESPINOSA ON TELE UNIT WHO WILL RESUME FURTHER CARE OF THIS PATIENT.
[2018-08-31] VITALS (8 sets, daily range): BP systolic 90–106; BP diastolic 40–70
[2018-08-31 00:24] LABS: T3 TOTAL 0.79 ng/mL
--- NOTE | 2018-08-31 00:35 | NUR ---
RECEIVED PT FROM ER, PT ADMIT FOR ANASARCA, HYPERAMMONIA, ACUTE RENAL FAILURE, PT IS VERY DROWSY AT THIS MOMEMT, BUT A/O X3, WHILE AWAKE, ABLE TO FOLLOW VERBAL COMMAND. LUNG SOUND CLEAR BILATERAL, NO COUGH, NO SOB, PO2 94% IN ROOM AIR, PT IS ON TELE 4, NSR, DENY ANY CHEST PAIN OR DISCOMFORT, BOWEL SOUND PRESENT BOTH FEET, +2 EDEMA BLE UP TO THIGH, IV AT LEFT AC, NO LEAKING, NO INFILTRATION. ALL ADLS ASSIST, ALL NEED MET, CALL LIGHT IN REACH, WILL CONTINUE TO MONITOR.
--- NOTE | 2018-08-31 00:38 | NUR ---
RECEIVED PT FROM ER, PT ADMIT FOR ANASARCA, HYPERAMMONIA, ACUTE RENAL FAILURE, PT IS VERY DROWSY AT THIS MOMEMT, BUT A/O X3, WHILE AWAKE, ABLE TO FOLLOW VERBAL COMMAND. LUNG SOUND CLEAR BILATERAL, NO COUGH, NO SOB, PO2 94% IN ROOM AIR, PT IS ON TELE 4, NSR, DENY ANY CHEST PAIN OR DISCOMFORT, BOWEL SOUND PRESENT ALL 4 QUADRANTS, DISTENTED. PEDAL PULSE PRESENT BOTH FEET, +2 EDEMA BLE UP TO THIGH, IV AT LEFT AC, NO LEAKING, NO INFILTRATION. ALL ADLS ASSIST, ALL NEED MET, CALL LIGHT IN REACH, WILL CONTINUE TO MONITOR.
--- NOTE | 2018-08-31 00:39 | NUR ---
CLARIFIED WITH DR PATRICIO RE LACTULOSE ORDER, LAST DOSE GIVEN @ ER [id number] AND NEXT DOSE WILL BE @ 0000, DR PATRICIO STATED TO DISREGARD 0000 DOSE, JUST START THE DOSE @ 0600.
--- NOTE | 2018-08-31 04:38 | NUR ---
PT ASLEEP NO S/SX OF PAIN OR DISCOMFORTS, NO SIGNS OF ALCOHOL WITHDRAWAL, BED ALARM ON FOR SAFETY, SR IN THE MONITOR, VISUAL CHECKED AT INTERVALS.
--- NOTE | 2018-08-31 06:36 | NUR ---
PT SLEPT MOST OF THE NIGHT, STILL DROWSY BUT ANSWERS QUESTION APPROPRIATELY, DUE MEDS GIVEN, ON LACTULOSE FOR ELEVATED AMMONIA LEVEL, NO BM AT THIS TIME, NO SIGNS OF ALCOHOL WITHDRAWAL, WILL MONITOR.
[2018-08-31 07:08] LABS: CALCIUM 8.5 mg/dL (8.5-10.1); CARBON DIOXIDE 18.9 mmol/L (21-32); CREATININE SERUM 1.7 mg/dL (0.7-1.3); POTASSIUM SERUM 4.4 mmol/L (3.5-5.1)
--- NOTE | 2018-08-31 07:55 | NUR ---
AT 0710 - RECEIVED PATIENT FROM NIGHT NURSE. SLEEPING. RESPIRATIONS REGULAR. MONITOR SHOWING SINUS RHYTHM; RATE 78. AT 0730 - ULTRASOUND AT BEDSIDE. PATIENT AWARE, DROWSY.
[2018-08-31 08:03] LABS: BASOPHIL % 0.7 % (0-2); PLATELET COUNT 246 x10^3mcL (130-400)
[2018-08-31 08:05] LABS: RED CELL DISTRIBUTION WIDTH 18.8 % (11.5-14.5)
--- NOTE | 2018-08-31 08:57 | NUR ---
PATIENT HAD AMBULATED TO BATHROOM AND BACK TO BED FOR BM. VISITED FOR A SHORT TIME AND LEFT. PATIENT IS AWAKE AND ORIENTED TO PERSON, PLACE, TIME AND SITUATION. ATE SMALL AMOUNT OF BREAKFAST. INSTRUCTED TO CALL WITH ANY NEEDS AND NOT TO GET OUT OF BED ALONE.
--- NOTE | 2018-08-31 10:14 | NUR ---
AT 0955 - COMMENCED IV INFUSION OF NS AT 150ML/HR FOR 1L. IV LASIX 40 MG NOT ADMINISTERED AT THIS TIME DUE TO BP OF 97/57. CALL PLACED FOR DR TALBERT TO NOTIFY AND GET INSTRUCTION.
--- NOTE | 2018-08-31 10:34 | NUR ---
SEEN BY DR BARRAGAN DURING MORNING ROUNDS. SPOKE WITH DR TALBERT ABOUT IV LASIX AND LOW BP. GIVE LASIX AFTER 2 HR OF IV FLUIDS.
--- NOTE | 2018-08-31 11:00 | NUR ---
Discount pharmacy card and list to low cost medical clinics given to patient by Vickie.
--- NOTE | 2018-08-31 12:59 | NUR ---
AT 1150 - BP NOW 108/68 . IV LASIX 40 MG ADMINSITERED PER EMAR. BLOOD GLUCOSE LEVEL 145. AT 1250 - IV INFUSION DISCONTINUED PER NEW ORDERS. PATIETN PLACED ON 1200 ML FLUID RESTRICTION AND 1200 MG NA RESTRICTION. SITTING UP IN BED FOR LUNCH.
--- NOTE | 2018-08-31 18:56 | NUR ---
HAS SLEPT GREATER PART OF AFTERNOON. WHEN AWAKE, PATIENT IS ORIENTED X 4. VSS. AFEBRILE. IV SALINE LOCKED. HAS HAD SOME DIAURESIS FROM LASIX ADMINISTERED EARLEIR. EATING WELL. CALM AND COOPERATIVE. WILL ENDORSE CARE TO NIGHT NURSE.
--- NOTE | 2018-08-31 20:06 | NUR ---
RECIEVED AWAKE IN BED, HOB ELEVATED AT 45 DEGREES. RESPIRATION EVEN AND UNLABORED WITH DIMINISHED BILATERALOWER LOBE , ON 02 AT 2L/NC TO FACILITATE BREATHING. ABDOMEN FIRM/DISTENDED WITH ACTIVE BOWEL SOUNDS. NOTED TO HAVE 3+ EDEMA ON BLE. PLACED CALL LIGHT WITHIN REACH, INSTRUCTED TO CALL FOR ANY ASSISTANCE NEEDED AND VERBALIZED UNDERSTANDING.
--- NOTE | 2018-08-31 22:00 | NUR ---
LASIX IV HEL , BP=90/40, DENEIS ANY EHADACHE/DIZZINESS AT THIS TIME.
--- NOTE | 2018-09-01 | NUR ---
USES URINAL FOR BLADDER ELIMINATION. KEPT CLEAN AND DRY.
--- NOTE | 2018-09-01 05:50 | NUR ---
DUE MEDICATIONS GIVEN AND WELL TOLERATED. NO NAUSEA/VOMTING NOTED. KEPT CLEAN AND DRY.
[2018-09-01 05:56] VITALS: BP 103/64
[2018-09-01 06:10] LABS: PLATELET COUNT 190 x10^3mcL (130-400)
[2018-09-01 06:29] LABS: CALCIUM 8.7 mg/dL (8.5-10.1); CARBON DIOXIDE 22.9 mmol/L (21-32); CHLORIDE SERUM 100 mmol/L (98-107); CREATININE SERUM 1.3 mg/dL (0.7-1.3); GFR1 > 60 mL/min; GLUCOSE SERUM 122 mg/dL (74-106); MAGNESIUM 2.3 mg/dL (1.8-2.4); PHOSPHOROUS 3.9 mg/dL (2.5-4.9); POTASSIUM SERUM 4.4 mmol/L (3.5-5.1); SODIUM SERUM 134 mmol/L (136-145)
[2018-09-01 06:52] LABS: RED CELL DISTRIBUTION WIDTH 19.2 % (11.5-14.5)
--- NOTE | 2018-09-01 07:12 | NUR ---
RECEIVED PATIENT FROM HOG COOLER NURSE. PATIENT IS RESTING WITH BOTH EYES CLOSED, AROUSABLE. TELE#4, SR, HR 75. ON 2L NC, BREATHING APPEARS EVEN AND UNLABORED. FLUID RESTRICTION IN PLACE: 1200ML/DAY. IV SALINE LOCKED TO LAC, NO S/S ERYTHEMA AT SITE. CALL LIGHT WITHIN EASY REACH. FALL PREC IN PLACE. WILL CONTINUE PLAN OF CARE.
[2018-09-01 08:21] VITALS: BP 109/67
--- NOTE | 2018-09-01 09:30 | NUR ---
SPOKE WITH PATIENT'S NURSE SERINA REGARDING ORDERED FOR THORACENTESIS. WILL NEED PT/PTT TO BE DONE CORBIN IN ORDER TO CONTINUE. SERINA WILL CONTACT THE ORDERING PHYSICIAN FOR AN ORDER.
[2018-09-01 10:36] LABS: BAND NEUTROPHIL 4 % (0-10); BASOPHIL 0 % (0-2); MONOCYTE 20 % (0-7); SEGMENTED NEUTROPHILS 54 % (37-75)
[2018-09-01 10:37] LABS: rbc morphology (normal/abnorm) ABNORMAL (NORMAL); schistocyte (helmet cell) 1+
[2018-09-01 10:38] LABS: ovalocyte/elliptocyte 1+; target cell (codocyte) 1+
[2018-09-01 10:39] LABS: PLATELET MORPHOLOGY PLATELETS NORMAL
--- NOTE | 2018-09-01 11:15 | NUR ---
SPOKE WITH DR TALBERT BY PHONE R/T NEED FOR PT/PTT IN ORDER TO PROCEED WITH ORDERED THORACENTESIS.
[2018-09-01 12:12] VITALS: BP 121/70
--- NOTE | 2018-09-01 15:00 | NUR ---
ULTRASOUND AT BEDSIDE TO PREP FOR LEFT THORACENTESIS.
[2018-09-01 17:08] VITALS: BP 105/67
--- NOTE | 2018-09-01 18:30 | NUR ---
PATIENT RESTING EASY WITH BOTH EYES CLOSED, AROUSABLE. DENIES SOB AT REST. CALL LIGHT WIHTIN EASY REACH. WILL ENDORSE PATIENT CARE TO CLINICAL LABORATORY AIDE NURSE.
--- NOTE | 2018-09-01 19:22 | NUR ---
RECEIVED PT FROM PREVIOUS SHIFT. AAO. DROWSY AT TIMES BUT EASILY AROUSABLE. DENIES PAIN. TELE #4 SHOWING NSR, DENIES CP. BREATHING E/U ON 3L OXYGEN NC. DENIES SOB. ABD SOFT/ROUND, DENIES N/V. +3 PITTING EDEMA NOTED TO BLE. IV SITE SALINE-LOCKED, NO ERYTHEMA OR SWELLING NOTED AT SITE. CALL LIGHT WITHIN REACH. SAFETY MEASURES IN PLACE. WILL CONTINUE TO MONITOR.
[2018-09-01 20:02] VITALS: BP 105/60
[2018-09-01 21:05] LABS: APPEARANCE FLUID HAZY; COLOR FLUID YELLOW; LYMPHOCYTE FLUID 56 %; MONOCYTE FLUID 26 %; RBC FLUID 1550 /cumm; SOURCE FLUID THORACENTESIS; WBC FLUID 40 /cumm
[2018-09-02] VITALS (7 sets, daily range): BP systolic 88–115; BP diastolic 55–68
--- NOTE | 2018-09-02 00:30 | NUR ---
PT RESTING IN BED WITH EYES CLOSED. BREATHING E/U. NO S/S ACUTE DISTRESS. CALL LIGHT WITHIN REACH. WILL CONTINUE TO MONITOR.
--- NOTE | 2018-09-02 05:48 | NUR ---
PT C/O 8/10 SHARP BLE PAIN, MEDICATED PER EMAR.
[2018-09-02 07:24] LABS: CALCIUM 8.5 mg/dL (8.5-10.1); CARBON DIOXIDE 24.7 mmol/L (21-32); CHLORIDE SERUM 101 mmol/L (98-107); CREATININE SERUM 1.2 mg/dL (0.7-1.3); GFR1 > 60 mL/min; GLUCOSE SERUM 115 mg/dL (74-106); MAGNESIUM 2.2 mg/dL (1.8-2.4); PHOSPHOROUS 3.9 mg/dL (2.5-4.9); POTASSIUM SERUM 4.2 mmol/L (3.5-5.1); SODIUM SERUM 134 mmol/L (136-145)
--- NOTE | 2018-09-02 07:30 | NUR ---
PT ENDORSE TO ME THIS MORNING. LAYING IN BED RESTING. AA/O X4 LAYING IN BED RESTING. BREATHING EVEN AND UNLABORED ON REMAINS ON 3L NC DIM. NO ACUTE RESP DISTRESS OR SOB. TELE 4 SR NOTED, HR 71, DENIES ANY CP OR PRESSURE. RUE 1+ AND BLE 3+ EDEMA NOTED. PULSES PRESENT. BOWEL SOUNDS ACTIVE IN ALL FOUR QUADS, LAST BM 5/3 LOOSE. VOIDS FREELY. AMB WITH GEN WEAKNESS BLE PAIN AT TIMES. IV TO THE LAC INTACT AND PATENT. HEPLOCKED. CALL LIGHT IN REACH. BED IN LOW POSITION. WILL CONTINUE TO MONITOR.
[2018-09-02 08:05] LABS: BASOPHIL % 1.5 % (0-2); PLATELET COUNT 157 x10^3mcL (130-400)
[2018-09-02 08:06] LABS: RED CELL DISTRIBUTION WIDTH 19.4 % (11.5-14.5)
--- NOTE | 2018-09-02 13:30 | NUR ---
PT SITTING UP IN BED. TOLERATED 100% OF HIS LUNCH. DENIES ANY DISCOMFORT OR PAIN AT THIS TIME. CALL LIGHT IN REACH. BED IN LOW POSITION. FAMILY AT BEDSIDE. WILL CONTINUE PLAN OF CARE.
--- NOTE | 2018-09-02 18:00 | NUR ---
PT SITTING UP IN BED HAVING HIS DINNER. FAMILY AT BEDSIDE. TOLERATED 100% OF HIS DNNNER. DENIES ANY ABD OR SCROTUM DISCOMFORT. PT IS EDUCATED ON THE IMPORTANCE OF HAVING IS SCROTUM ELEVATED. WILL CONTINUE TO MONITOR.
--- NOTE | 2018-09-02 18:52 | NUR ---
NO ACUTE CHANGES AT THIS TIME. NO ACUTE RESP DISTRESS OR SOB NOTED/ REMAINS ON 3L NC AT 96-98%. DENIES ANY CP OR PRSSURE/ OR DISCOMFORT. WILL ENDORSE TO INCOMING RN.
--- NOTE | 2018-09-02 19:47 | NUR ---
RECEIVED PT FROM PREVIOUS SHIFT. RESTING IN BED WITH EYES CLOSED. RESPONDS TO VERBAL STIMULI. NO INDICATIONS OF PAIN NOTED. BREATHING E/U ON 3L OXYGEN NC. PULSES PALPABLE, +3 PITTING EDEMA NOTED TO BLE. IV SITE SALINE-LOCKED, NO ERYTHEMA OR SWELLING NOTED. CALL LIGHT WITHIN REACH. SAFETY MEASURES IN PLACE. WILL CONTINUE TO MONITOR.
--- NOTE | 2018-09-03 01:02 | NUR ---
PT RESTING IN BED WITH EYES CLOSED. BREATHING E/U. NO SIGNS OF ACUTE DISTRESS. CALL LIGHT WITHIN REACH. SAFETY MEASURES MAINTAINED. WILL CONTINUE TO MONITOR.
[2018-09-03 05:27] VITALS: BP 93/49
--- NOTE | 2018-09-03 06:01 | NUR ---
PT HAD RESTFUL NIGHT. DENIES PAIN. NO S/S ACUTE DISTRESS. NO CHANGES OVERNIGHT. ALL NEEDS MET AND ATTENDED TO. UPDATED PT ON POC. IV SITE CDI, NO ERYTHEMA OR SWELLING. CALL LIGHT WITHIN REACH. SAFETY MEASURES MAINTAINED. WILL ENDORSE CARE TO ONCOMING SHIFT.
[2018-09-03 07:11] LABS: BASOPHIL % 0.3 % (0-2); PLATELET COUNT 155 x10^3mcL (130-400)
[2018-09-03 07:17] LABS: RED CELL DISTRIBUTION WIDTH 18.6 % (11.5-14.5)
--- NOTE | 2018-09-03 07:30 | NUR ---
PT ENDORSE TO ME THIS MORNING, SITTING UP IN BED, AA/O X4. BREATHING EVEN AND UNLABORED ON 3L NC. NO ACUTE RESP DISTRESS OR SOB NOTED. DENIES ANY CP OR PRESSURE. EDEMA NOTED BLE +3 AND SCROTAL EDEMA ELEVATED. GEN WEAKNESS, VOIDS, AMB. IV TO THE LAC INTACT AND PATENT/ NO REDNESS OR SWELLING NOTED. WILL CONTINUE PLAN OF CARE. WILL CONTINUE TO MONITOR.
[2018-09-03 07:37] LABS: MAGNESIUM 1.9 mg/dL (1.8-2.4); PHOSPHOROUS 4.1 mg/dL (2.5-4.9)
[2018-09-03 09:00] VITALS: BP 104/56
[2018-09-03 09:06] VITALS: BP 92/55
--- NOTE | 2018-09-03 10:45 | NUR ---
DR. DERAS AND TEAM AT BEDSIDE.
[2018-09-03 12:38] VITALS: BP 96/59
--- NOTE | 2018-09-03 14:30 | NUR ---
PT TOLERATED 100 % OF HIS LUNCH. DENIES ANY ABD DISCOMFORT OR PAIN. FAMILY AT BEDSIDE. WILL CONTINUE TO MONITOR.
[2018-09-03 17:06] VITALS: BP 103/58
--- NOTE | 2018-09-03 18:18 | NUR ---
NO ACUTE CHANGES AT THIS TIME, NO ACUTE RESP DISTRESS OR SOB NOTED/ REMAINS ON 3L NC, SATING AT 98%. TOTAL INTAKE 590ML/HR. TOTAL URINE OUTPUT = 1800 ML/HR. IV TO THE LAC INTACT AND PATENT/HEPLOCKED/ NO REDNESS OR SWELLING NOTED. WILL ENDORSE TO INCOMING RN.
--- NOTE | 2018-09-03 19:57 | NUR ---
RECEIVED REPORT FROM PREVIOUS SHIFT. PT CURRENTLY WATCHING TV IN BED WITH HOB ELEVATED. PT ABLE TO MAKE NEEDS KNOWN AND FOLLOW COMMANDS. PT DENIES PAIN AT THIS TIME. BREATHING E/U ON 3L OXYGEN NC, DENIES SOB. PULSES PALPABLE, +3 PITTING EDEMA NOTED TO BLE, TRACE EDEMA TO BUE. IV SITE SALINE-LOCKED, NO ERYTHEMA OR SWELLING NOTED. CALL LIGHT WITHIN REACH. SAFETY MEASURES IN PLACE. WILL CONTINUE TO MONITOR.
[2018-09-03 21:04] VITALS: BP 106/59
--- NOTE | 2018-09-04 01:05 | NUR ---
PT RESTING IN BED COMFORTABLY. BREATHING E/U. NO S/S ACUTE DISTRESS. CALL LIGHT WITHIN REACH. SAFETY MEASURES MAINTAINED. WILL CONTINUE TO MONITOR.
[2018-09-04 04:56] VITALS: BP 96/54
--- NOTE | 2018-09-04 06:08 | NUR ---
PT HAD RESTFUL NIGHT. IN NO ACUTE DISTRESS. DENIES PAIN AT THIS TIME. NO CHANGES OVERNIGHT. ALL NEEDS MET AND ATTENDED TO. IV SITE CDI, NO ERYTHEMA OR SWELLING. CALL LIGHT WITHIN REACH. SAFETY MEASURES MAINTAINED. WILL ENDORSE CARE TO ONCOMING SHIFT.
[2018-09-04 07:00] LABS: ALKALINE PHOSPHATASE 129 U/L (46-116); ALT/SGPT 21 U/L (16-63); AST/SGOT 34 U/L (15-37); BILIRUBIN TOTAL 1.34 mg/dL (0.20-1.00); CALCIUM 8.6 mg/dL (8.5-10.1); CARBON DIOXIDE 25.6 mmol/L (21-32); CHLORIDE SERUM 100 mmol/L (98-107); CREATININE SERUM 1.1 mg/dL (0.7-1.3); GFR1 > 60 mL/min; GLUCOSE SERUM 114 mg/dL (74-106); POTASSIUM SERUM 3.6 mmol/L (3.5-5.1); SODIUM SERUM 136 mmol/L (136-145)
[2018-09-04 07:01] LABS: ALBUMIN 2.4 g/dL (3.4-5.0)
[2018-09-04 07:05] LABS: MAGNESIUM 1.6 mg/dL (1.8-2.4); PHOSPHOROUS 4.3 mg/dL (2.5-4.9); PLATELET COUNT 154 x10^3mcL (130-400); RED CELL DISTRIBUTION WIDTH 18.7 % (11.5-14.5)
--- NOTE | 2018-09-04 07:06 | NUR ---
BEDSIDE REPORT GIVEN TO FRANCISCA CRISOSTOMO.
--- NOTE | 2018-09-04 07:20 | NUR ---
RECEIVED PT FROM SHIFT NURSE A/OX4 SITTING UP IN BED. NO ACUTE DISTRESS NOTED. IV INTACT AND PATENT. BED IN LOW POSITION. CALL LIGHT WITHIN REACH. WILL CONTINUE TO MONITOR.
[2018-09-04 09:15] VITALS: BP 93/32
--- NOTE | 2018-09-04 10:24 | NUR ---
PT ASLEEP BUT AROUSABLE. NO ACUTE DISTRESS NOTED. BED IN LOW POSITION. CALL LIGHT WITHIN REACH. WILL CONTINUE TO MONITOR.
--- NOTE | 2018-09-04 12:09 | NUR ---
PT WEANED OFF O2. RESP EVEN AND UNLABORED ON RA. SAT 95%. WILL CONTINUE TO MONITOR.
[2018-09-04 12:31] VITALS: BP 92/49
--- NOTE | 2018-09-04 15:00 | NUR ---
PT SITTING UP IN BED WATCHING TV. DENIES ANY PAIN OR DISCOMFORT. CALL LIGHT WITHIN REACH. WILL CONTINUE TO MONITOR.
--- NOTE | 2018-09-04 15:10 | NUR ---
1. Recommend CCHO, 2g Sodium diet
--- NOTE | 2018-09-04 15:10 | NUR ---
Initial Nutrition Assessment- 240T/B NATHALIE MENON [place] MR Dx: Anasarca, hyperammonemia, acute renal failure PMHx: DM, HTN, alcohol abuse, cirrhosis with ascites, GI bleed PSHx: EGD Labs: BG 114H, BUN 19H, ALB 2.4L, MG 1.6L Meds: Aldactone, D50%, Ferrous sulfate, folic acid, Humulin, Lasix, Theragran, vitamin B-1, Zofran Diet: CCHO PO Intake: breakfast 100% Ht: 175.26cm (69") Wt: 111 kg (244#) BMI: 36.3 kg/m2 (obesity) IBW: 160# (73 kg) %IBW: 152 UBW: unable to access Age: 47/M Food Allergies: NKFA Skin: Intact Kenrick: 20 Edema: +2 GI: last BM: 09/03 Per H&P, Patient is a 47 year old male with PMH of DM, HTN, alcohol abuse, cirrhosis with ascites, and GI bleed was brought in by ambulance for alcohol intoxication accompanied by Jimmy GRULLON. Per vice squad police officer, patient was arrested for DUI for almost crashing his car. Patient admitted to drinking vodka today. Per ER note, patient complained of generalized weakness and bilateral lower extremity edema. Patient was discharged from [facility] [place] on 08/26/18 where he had thoracentesis. FNS received nutrition consult for "liver cirrhosis" on 09/04. RDN visit (09/04): pt was awake and said that he has good appetite and he ate almost all of his breakfast this morning. Since pt has history of DM, diabetes diet education was provided using [facility] handout "MNT for type 2 DM". Concepts such as types of carbohydrate and meal planning were discussed. Pt said that he attends Diabetes education classes at [facility] [place]. Discussed recommendations with Dr. Díaz. Problem with: N: some V: no D: no C: no Problems with: Chewing/Swallowing: none Current appetite: good Recent wt change: none Vitamin/Supplement use: MVI Special diet at home: Tries to reduce salt, sugar and fat intake. Physical activity: tries to walk as much as he can Education: Diabetes diet education was provided using [facility] handout "MNT for type 2 DM". Concepts such as types of carbohydrate and meal planning were discussed. Estimated Nutritional Needs Based on ideal body weight 73 kg Energy: 1158-2801 kcal/d (30-35 kcal/kg-cirrhosis) Protein: 58-73 g/d (0.8-1.0 g/kg)-maintenance and preservation of lean body mass Fluid: per MD Nutrition Diagnosis 1. Impaired nutrient utilization related to cirrhosis as evidenced by total bilirubin 1.34H. Intervention 1. Recommend CCHO, 2g Sodium diet Monitor/Evaluate Goal: PO intake at least 75% of estimated needs Monitor: PO intake, Labs, GI function F/U in 7 days as low risk 09/11
--- NOTE | 2018-09-04 15:13 | NUR ---
Initial Nutrition Assessment- 240T/B NATHALIE MENON IA MR Dx: Anasarca, hyperammonemia, acute renal failure PMHx: DM, HTN, alcohol abuse, cirrhosis with ascites, GI bleed PSHx: EGD Labs: BG 114H, BUN 19H, ALB 2.4L, MG 1.6L Meds: Aldactone, D50%, Ferrous sulfate, folic acid, Humulin, Lasix, Theragran, vitamin B-1, Zofran Diet: CCHO PO Intake: breakfast 100% Ht: 175.26cm (69") Wt: 111 kg (244#) BMI: 36.3 kg/m2 (obesity) IBW: 160# (73 kg) %IBW: 152 UBW: unable to access Age: 47/M Food Allergies: NKFA Skin: Intact Kenrick: 20 Edema: +2 GI: last BM: 09/03 Per H&P, Patient is a 47 year old male with PMH of DM, HTN, alcohol abuse, cirrhosis with ascites, and GI bleed was brought in by ambulance for alcohol intoxication accompanied by Jimmy GRULLON. Per police radio dispatcher, patient was arrested for DUI for almost crashing his car. Patient admitted to drinking vodka today. Per ER note, patient complained of generalized weakness and bilateral lower extremity edema. Patient was discharged from [facility] [place] on 08/26/18 where he had thoracentesis. FNS received nutrition consult for "liver cirrhosis" on 09/04. RDN visit (09/04): pt was awake and said that he has good appetite and he ate almost all of his breakfast this morning. Since pt has history of DM, diabetes diet education was provided using [facility] handout "MNT for type 2 DM". Concepts such as types of carbohydrate and meal planning were discussed. Pt said that he attends Diabetes education classes at [facility] [place] [place]. Discussed recommendations with Dr. Díaz. Problem with: N: some V: no D: no C: no Problems with: Chewing/Swallowing: none Current appetite: good Recent wt change: none Vitamin/Supplement use: MVI Special diet at home: Tries to reduce salt, sugar and fat intake. Physical activity: tries to walk as much as he can Education: Diabetes diet education was provided using [facility] handout "MNT for type 2 DM". Concepts such as types of carbohydrate and meal planning were discussed. Estimated Nutritional Needs Based on ideal body weight 73 kg Energy: 3472-2136 kcal/d (30-35 kcal/kg-cirrhosis) Protein: 58-73 g/d (0.8-1.0 g/kg)-maintenance and preservation of lean body mass Fluid: per MD Nutrition Diagnosis 1. Impaired nutrient utilization related to cirrhosis as evidenced by total bilirubin 1.34H. Intervention 1. Recommend CCHO, 2g Sodium diet Monitor/Evaluate Goal: PO intake at least 75% of estimated needs Monitor: PO intake, Labs, GI function F/U in 7 days as low risk 09/11
--- NOTE | 2018-09-04 15:13 | NUR ---
1. Recommend CCHO, 2g Sodium diet
[2018-09-04 17:30] VITALS: BP 97/49
--- NOTE | 2018-09-04 18:21 | NUR ---
PT SITTING UP IN BED EATING DINNER. NO ACUTE DISTRESS NOTED. DENIES ANY LEG PAIN AT THIS TIME. BED IN LOW POSITION. CALL LIGHT WITHIN REACH. WILL BE ENDORSED.
[2018-09-04 18:44] VITALS: BP 97/49
--- NOTE | 2018-09-04 19:36 | NUR ---
SHIFT REASSESSMENT DONE.PATIENT ALERT AND ORIENTED.BREATHING EASY.GEN WEAKNESS,AMBULATORY.LAC HEPLOCK INTACT.TELE 4 SR.SKIN INTACT.BLE EDEMA NOTED ALSO SCROTAL EDEMA,VOIDING,STRICT I AND O 1200 CC/ DAY.CALL LIGHT IN REACH.
[2018-09-04 20:53] VITALS: BP 98/65
--- NOTE | 2018-09-04 21:06 | NUR ---
PM MEDS GIVEN,SWALLOWS WELL.BLOOD SUGAR 117.
--- NOTE | 2018-09-04 23:44 | NUR ---
PATIENT VOICED OUT HOW HE FEELS TO [facility],PSYCHOLOGICAL CARE GIVEN,SAYS HIS IS SO UPSET WITH HIM,NOW HAS A POLICE RECORD,[place].ALSO A LIVER CANDIDATE IN [place],HE WILL BE ON THE BOTTOM OF WAITING LIST.UP AND ABOUT TO RESTROOM,ON LACTULOSE,HIGH AMMONIA LEVEL.
--- NOTE | 2018-09-05 00:37 | NUR ---
CHECKED/NURSING ROUNDS,NO COMPLAINT.
--- NOTE | 2018-09-05 05:42 | NUR ---
I AND O MEASURED.AM MED GIVEN,LACTULOSE.BLOOD SUGAR 100.
[2018-09-05 06:03] VITALS: BP 96/57
[2018-09-05 06:38] LABS: BASOPHIL % 0.7 % (0-2); PLATELET COUNT 143 x10^3mcL (130-400)
[2018-09-05 06:43] LABS: CALCIUM 8.5 mg/dL (8.5-10.1); CARBON DIOXIDE 26.6 mmol/L (21-32); CHLORIDE SERUM 100 mmol/L (98-107); GFR1 > 60 mL/min; GLUCOSE SERUM 97 mg/dL (74-106); MAGNESIUM 1.7 mg/dL (1.8-2.4); PHOSPHOROUS 3.5 mg/dL (2.5-4.9); POTASSIUM SERUM 3.8 mmol/L (3.5-5.1); SODIUM SERUM 135 mmol/L (136-145)
[2018-09-05 06:56] LABS: RED CELL DISTRIBUTION WIDTH 18.7 % (11.5-14.5)
--- NOTE | 2018-09-05 07:25 | NUR ---
RECEIVED PT'S REPORT FROM LEAVING NURSE. PT IS AA/O X4. PT NO COMPLAIN OF PAIN AND SOB. PT BREATHING ON O2 2L VIA NC AT THIS TIME. PT COMPLAIN EDEMA ON BLE GETTING WORSE BECAUSE HE DIDN'T GET HIS LASIX YESTERDAY. WILL VERIFY PT'S SCHEDULED MED. BLE ARE ELEVATED WITH PILLOWS, +2 PITTING EDEMA NOTED. IV SITE SALINE LOCK AT THIS TIME.
[2018-09-05 09:16] VITALS: BP 102/66
[2018-09-05 13:01] VITALS: BP 107/57
--- NOTE | 2018-09-05 14:19 | NUR ---
PT URINE OUT 1500ML, PT STATED BLE SWELLING IS RESOLVED SOME. NO COMPLAIN OF PAIN AND SOB. PT IS WEANED OFF FROM O2. PT BREATHING ON RA, EVEN, UNLABORED. BLE ARE ELEVATED WITH PILLOWS.
--- NOTE | 2018-09-05 17:50 | NUR ---
PT'S TOLERATE WELL ON RA THROUGH SHIFT, DENIED SOB. PT'S BP STABLE, SCHEDULED BUMEX GIVEN. PT HAD URINE OUTPUT > 2000 ML. BLE SWELLING IS DECREASED, ELEVATED WITH PILLOWS. PT REPORTS BM X 4, WATERY STOOL.IV SITE PATENT, INTACT, SALINE LOCK AT THIS TIME.
[2018-09-05 18:10] VITALS: BP 108/54
--- NOTE | 2018-09-05 19:12 | NUR ---
ENDORSE PT'S CARE TO RECEIVING NURSE. PT REST ON BED, BREATHING ON RA, NO DISTRESSED NOTED.
--- NOTE | 2018-09-05 19:29 | NUR ---
SHIFT REASSESSMENT DONE.PATIENT ALERT AND ORIENTED.SA PRECAUTION,ETOH.BREATHING EASY.ROOM AIR.HEPLOCK LAC.TELE 4 SR.STRICT I AND O.BLE EDEMA NOTED BUT MORE LESS SINCE ADMIT.SCROTAL EDEMA ALSO/SCROTAL SUPPORT.PLEASNT AND COOPERATIVE.CALL LIGHT IN REACH.
[2018-09-05 20:47] VITALS: BP 102/59
--- NOTE | 2018-09-05 22:01 | NUR ---
PM MEDS GIVEN,HS SNACK GIVEN AND PRN MED.SWALLOWS WELL.CALL LIGHT IN REACH.
--- NOTE | 2018-09-05 23:19 | NUR ---
PATIENT CHECKED AT INTERVALS FOR NEEDS AND SAFETY.
--- NOTE | 2018-09-06 02:44 | NUR ---
PATIENT AWAKENED BY NOISE,GO A ROOM MATE NOW.NO RESP DISTRESS.
[2018-09-06 05:46] VITALS: BP 100/60
[2018-09-06 06:22] LABS: CALCIUM 8.5 mg/dL (8.5-10.1); CHLORIDE SERUM 101 mmol/L (98-107); GFR1 > 60 mL/min; GLUCOSE SERUM 90 mg/dL (74-106); POTASSIUM SERUM 3.5 mmol/L (3.5-5.1); SODIUM SERUM 136 mmol/L (136-145)
[2018-09-06 06:26] LABS: PLATELET COUNT 142 x10^3mcL (130-400)
[2018-09-06 06:45] LABS: RED CELL DISTRIBUTION WIDTH 19.1 % (11.5-14.5)
--- NOTE | 2018-09-06 07:15 | NUR ---
RECEIVED PATIENT FROM MANAGER HOME HEALTHCARE NURSE. PATIENT IS AWAKE, ALERT AND ORIENTED. SEIZURE PREC IN PLACE. TELE#4, SR, HR 95. ON ROOM AIR, BREATHING EVEN AND UNLABORED. [address]. IV NOTED TO LAC, SALINE LOCKED, NO S/S ERYTHEMA AT SITE. CALL LIGHT WITHIN EASY REACH. WILL CONTINUE PLAN OF CARE.
[2018-09-06 08:02] VITALS: BP 99/57
[2018-09-06 12:03] VITALS: BP 101/55
[2018-09-06 12:16] VITALS: BP 101/55
[2018-09-06] MEDS ORDERED: LACTULOSE10 GM/152 PO (13:42)
--- NOTE | 2018-09-06 14:16 | NUR ---
PATIENT DC'D AT THIS TIME. GIVEN ALL DC INSTRUCTIONS. ALL NEW PRESCRIPTIONS GIVEN TO PATIENT. ALL QUESTIONS ANSWERED REGARDING DC. IV REMOVED AND CATHETER TIP INTACT. TELE BOC REMOVED AND RETURNED TO EXECUTIVE STEWARD. PATIENT INSTRUCTED TO NOTIFY WHEN READY TO BE TAKEN DOWN TO DC OFFICE.
--- NOTE | 2018-09-06 14:32 | NUR ---
PATIENT TAKEN DOWN TO DC OFFICE AT THIS TIME VIA WHEELCHAIR. PATIENT AWAKE, ALERT AND ORIENTED. DENIES PAIN AT TIME OF DC. VS STABLE.
== END 2018-09-06 14:32 | disposition home or self-care (01) | DRG 280 ==
LOC: ED 20:23 → DU 22:17
PROVIDERS: Emergency Medicine; Family Medicine; ADMIT Internal Medicine
PROC: 0W9B3ZZ Drainage of Left Pleural Cavity, Percutaneous Approach (ICD-10-PCS; principal; 2018-09-01)
DX: K70.31 Alcoholic cirrhosis of liver with ascites (principal); K70.40 Alcoholic hepatic failure without coma; N17.0 Acute kidney failure with tubular necrosis; G92 Toxic encephalopathy; E43 Unspecified severe protein-calorie malnutrition; D64.9 Anemia, unspecified; F10.229 Alcohol dependence with intoxication, unspecified; E11.9 Type 2 diabetes mellitus without complications; E03.9 Hypothyroidism, unspecified; I10 Essential (primary) hypertension; R74.0 Nonspecific elevation of levels of transaminase and lactic acid dehydrogenase [LDH]; Z68.30 Body mass index [BMI] 30.0-30.9, adult; Z79.4 Long term (current) use of insulin; Y90.7 Blood alcohol level of 200-239 mg/100 ml
CPT/HCPCS: 32555; 82962; 83880; 84439; G0480; J1940; J2001; J3490; J7030; Q0092

== ENCOUNTER 2019-01-11 18:06 | Inpatient (IN) | payer MEDICAID ==
[~2019-01-11] VITALS: Ht 175.3 cm; Wt 103.8 kg
[~2019-01-11 18:06] MED LIST changes: +LACTULOSE10 GM/152 PO
[2019-01-11 20:04] LABS: CALCIUM 6.8 mg/dL (8.5-10.1); CARBON DIOXIDE 12.9 mmol/L (21-32); CHLORIDE SERUM 101 mmol/L (98-107); CREATININE SERUM 1.1 mg/dL (0.7-1.3); GFR1 > 60 mL/min; GLUCOSE SERUM 84 mg/dL (74-106); POTASSIUM SERUM 5.1 mmol/L (3.5-5.1); SODIUM SERUM 138 mmol/L (136-145)
[2019-01-11 20:09] LABS: ALKALINE PHOSPHATASE 122 U/L (46-116); ALT/SGPT 51 U/L (16-63); AST/SGOT 94 U/L (15-37); BILIRUBIN TOTAL 2.7 mg/dL (0.20-1.00)
[2019-01-11 20:09] LABS: BASOPHIL % 0.3 % (0-2)
[2019-01-11 20:10] LABS: PLATELET COUNT 108 x10^3mcL (130-400); RED CELL DISTRIBUTION WIDTH 18.5 % (11.5-14.5)
[2019-01-11 20:12] LABS: ALBUMIN 1.8 g/dL (3.4-5.0); TOTAL PROTEIN, SERUM 4.9 g/dL (6.4-8.2)
[2019-01-11 20:30] LABS: microscopic required? NO
[2019-01-11 20:34] LABS: UA SPECIFIC GRAVITY 1.025 (1.005-1.035); urine erythrocyte NEGATIVE (NEGATIVE)
[2019-01-11 20:36] LABS: PHOSPHOROUS 3.9 mg/dL (2.5-4.9)
[2019-01-11 20:37] LABS: CHOLESTEROL/HDL RATIO 3.6
[2019-01-11 20:42] LABS: MAGNESIUM 1.7 mg/dL (1.8-2.4)
[2019-01-11 20:45] LABS: AMPHETAMINE QUAL UR POSITIVE (See below)
[2019-01-11 20:54] LABS: rbc morphology (normal/abnorm) ABNORMAL (NORMAL)
[2019-01-11 20:56] VITALS: BP 97/37
[2019-01-11 23:13] VITALS: BP 94/43
[2019-01-12] VITALS (17 sets, daily range): BP systolic 93–129; BP diastolic 31–62
[2019-01-12 04:58] LABS: BASOPHIL % 0.1 % (0-2)
[2019-01-12 05:02] LABS: PLATELET COUNT 80 x10^3mcL (130-400)
[2019-01-12 05:03] LABS: RED CELL DISTRIBUTION WIDTH 22.3 % (11.5-14.5)
[2019-01-12 05:05] LABS: rbc morphology (normal/abnorm) ABNORMAL (NORMAL)
[2019-01-12 05:12] LABS: CARBON DIOXIDE 14.4 mmol/L (21-32); CREATININE SERUM 1.4 mg/dL (0.7-1.3); MAGNESIUM 1.9 mg/dL (1.8-2.4); PHOSPHOROUS 3.1 mg/dL (2.5-4.9)
[2019-01-12 05:52] LABS: BASOPHIL % 0.3 % (0-2)
[2019-01-12 05:53] LABS: PLATELET COUNT 75 x10^3mcL (130-400); RED CELL DISTRIBUTION WIDTH 21.4 % (11.5-14.5)
[2019-01-12 05:54] LABS: rbc morphology (normal/abnorm) ABNORMAL (NORMAL)
[2019-01-12 13:27] LABS: CALCIUM 6.9 mg/dL (8.5-10.1); CARBON DIOXIDE 17.1 mmol/L (21-32); CHLORIDE SERUM 104 mmol/L (98-107); CREATININE SERUM 1.3 mg/dL (0.7-1.3); GFR1 > 60 mL/min; GLUCOSE SERUM 260 mg/dL (74-106); POTASSIUM SERUM 4.8 mmol/L (3.5-5.1); SODIUM SERUM 139 mmol/L (136-145)
[2019-01-12 13:54] LABS: PLATELET COUNT 94 x10^3mcL (130-400); RED CELL DISTRIBUTION WIDTH 17.6 % (11.5-14.5)
[2019-01-12 14:11] LABS: BAND NEUTROPHIL 1 % (0-10); BASOPHIL 0 % (0-2); MONOCYTE 3 % (0-7); SEGMENTED NEUTROPHILS 96 % (37-75)
[2019-01-12 14:12] LABS: rbc morphology (normal/abnorm) ABNORMAL (NORMAL)
[2019-01-12 14:13] LABS: PLATELET MORPHOLOGY PLATELETS DECREASED
[2019-01-12 18:25] LABS: PLATELET COUNT 81 x10^3mcL (130-400); RED CELL DISTRIBUTION WIDTH 17.6 % (11.5-14.5)
[2019-01-12 19:31] LABS: BAND NEUTROPHIL 8 % (0-10); BASOPHIL 0 % (0-2); METAMYELOCTE 1 % (0-2); MONOCYTE 2 % (0-7); SEGMENTED NEUTROPHILS 87 % (37-75)
[2019-01-12 19:33] LABS: rbc morphology (normal/abnorm) ABNORMAL (NORMAL)
[2019-01-12 19:34] LABS: PLATELET MORPHOLOGY PLATELETS DECREASED
[2019-01-12 20:11] LABS: CARBON DIOXIDE 22.8 mmol/L (21-32); CHLORIDE SERUM 104 mmol/L (98-107); CREATININE SERUM 1.3 mg/dL (0.7-1.3); GFR1 > 60 mL/min; GLUCOSE SERUM 345 mg/dL (74-106); POTASSIUM SERUM 4.7 mmol/L (3.5-5.1); SODIUM SERUM 138 mmol/L (136-145)
[2019-01-13] VITALS (18 sets, daily range): BP systolic 91–115; BP diastolic 49–66
[2019-01-13 00:41] LABS: PLATELET COUNT 78 x10^3mcL (130-400); RED CELL DISTRIBUTION WIDTH 17.5 % (11.5-14.5)
[2019-01-13 00:43] LABS: BAND NEUTROPHIL 8 % (0-10); MONOCYTE 2 % (0-7); SEGMENTED NEUTROPHILS 87 % (37-75); rbc morphology (normal/abnorm) ABNORMAL (NORMAL)
[2019-01-13 00:44] LABS: PLATELET MORPHOLOGY PLATELETS DECREASED
[2019-01-13 04:06] LABS: RAPID PLASMA REAGIN Non Reactive (Non Reactive)
[2019-01-13 05:05] LABS: CALCIUM 7.2 mg/dL (8.5-10.1); CARBON DIOXIDE 25.9 mmol/L (21-32); CHLORIDE SERUM 107 mmol/L (98-107); CREATININE SERUM 1.2 mg/dL (0.7-1.3); GFR1 > 60 mL/min; SODIUM SERUM 140 mmol/L (136-145)
[2019-01-13 05:08] LABS: GLUCOSE SERUM 319 mg/dL (74-106)
[2019-01-13 07:32] LABS: BASOPHIL % 0 % (0-2); PLATELET COUNT 58 x10^3mcL (130-400)
[2019-01-13 07:36] LABS: rbc morphology (normal/abnorm) ABNORMAL (NORMAL)
[2019-01-13 12:03] LABS: BASOPHIL % 0 % (0-2); PLATELET COUNT 78 x10^3mcL (130-400); RED CELL DISTRIBUTION WIDTH 17.5 % (11.5-14.5)
[2019-01-13 12:18] LABS: CALCIUM 7.1 mg/dL (8.5-10.1); CARBON DIOXIDE 28.1 mmol/L (21-32); CREATININE SERUM 1.4 mg/dL (0.7-1.3); POTASSIUM SERUM 3.8 mmol/L (3.5-5.1)
[2019-01-13 18:22] LABS: CALCIUM 7.1 mg/dL (8.5-10.1); CARBON DIOXIDE 29.4 mmol/L (21-32); CHLORIDE SERUM 107 mmol/L (98-107); CREATININE SERUM 1.3 mg/dL (0.7-1.3); GFR1 > 60 mL/min; GLUCOSE SERUM 208 mg/dL (74-106); POTASSIUM SERUM 3.7 mmol/L (3.5-5.1); SODIUM SERUM 140 mmol/L (136-145)
[2019-01-13 18:25] LABS: BASOPHIL % 0 % (0-2); PLATELET COUNT 75 x10^3mcL (130-400); RED CELL DISTRIBUTION WIDTH 17.4 % (11.5-14.5)
[2019-01-14] VITALS (18 sets, daily range): BP systolic 91–105; BP diastolic 49–64
[2019-01-14 05:42] LABS: BASOPHIL % 0.2 % (0-2)
[2019-01-14 05:43] LABS: PLATELET COUNT 84 x10^3mcL (130-400); RED CELL DISTRIBUTION WIDTH 17.1 % (11.5-14.5)
[2019-01-14 06:15] LABS: CALCIUM 7.5 mg/dL (8.5-10.1); CARBON DIOXIDE 25.9 mmol/L (21-32); CREATININE SERUM 1.5 mg/dL (0.7-1.3); MAGNESIUM 1.8 mg/dL (1.8-2.4); PHOSPHOROUS 2.1 mg/dL (2.5-4.9); POTASSIUM SERUM 3.7 mmol/L (3.5-5.1)
[2019-01-14 14:21] LABS: BASOPHIL % 0.3 % (0-2)
[2019-01-14 14:25] LABS: PLATELET COUNT 63 x10^3mcL (130-400); RED CELL DISTRIBUTION WIDTH 17.9 % (11.5-14.5)
[2019-01-15] VITALS (18 sets, daily range): BP systolic 94–112; BP diastolic 53–80
[2019-01-15 01:00] LABS: BASOPHIL % 0.2 % (0-2)
[2019-01-15 01:31] LABS: PLATELET COUNT 55 x10^3mcL (130-400); RED CELL DISTRIBUTION WIDTH 17.4 % (11.5-14.5)
[2019-01-15 05:35] LABS: PLATELET COUNT 67 x10^3mcL (130-400); RED CELL DISTRIBUTION WIDTH 17.1 % (11.5-14.5)
[2019-01-15 05:46] LABS: CALCIUM 7.3 mg/dL (8.5-10.1); CARBON DIOXIDE 24.6 mmol/L (21-32); CREATININE SERUM 1.6 mg/dL (0.7-1.3); MAGNESIUM 1.7 mg/dL (1.8-2.4); PHOSPHOROUS 2.7 mg/dL (2.5-4.9); POTASSIUM SERUM 3.5 mmol/L (3.5-5.1)
[2019-01-16] VITALS (18 sets, daily range): BP systolic 95–141; BP diastolic 51–75
[2019-01-16 04:18] LABS: BASOPHIL % 0.7 % (0-2); PLATELET COUNT 50 x10^3mcL (130-400); RED CELL DISTRIBUTION WIDTH 17.8 % (11.5-14.5)
[2019-01-16 04:31] LABS: ALBUMIN 2.4 g/dL (3.4-5.0); MAGNESIUM 2.1 mg/dL (1.8-2.4); PHOSPHOROUS 3.1 mg/dL (2.5-4.9)
[2019-01-16 04:43] LABS: CALCIUM 7.7 mg/dL (8.5-10.1); CARBON DIOXIDE 24.7 mmol/L (21-32); CREATININE SERUM 1.5 mg/dL (0.7-1.3); POTASSIUM SERUM 3.2 mmol/L (3.5-5.1)
[2019-01-17] VITALS (11 sets, daily range): BP systolic 93–121; BP diastolic 49–80
[2019-01-17 05:21] LABS: BASOPHIL % 0.8 % (0-2)
[2019-01-17 05:22] LABS: PLATELET COUNT 63 x10^3mcL (130-400); RED CELL DISTRIBUTION WIDTH 17.5 % (11.5-14.5)
[2019-01-17 05:42] LABS: CARBON DIOXIDE 26.3 mmol/L (21-32); CHLORIDE SERUM 112 mmol/L (98-107); CREATININE SERUM 1.2 mg/dL (0.7-1.3); GFR1 > 60 mL/min; GLUCOSE SERUM 118 mg/dL (74-106); MAGNESIUM 1.8 mg/dL (1.8-2.4); PHOSPHOROUS 4.1 mg/dL (2.5-4.9); POTASSIUM SERUM 3.3 mmol/L (3.5-5.1); SODIUM SERUM 148 mmol/L (136-145)
[2019-01-18 03:08] VITALS: BP 109/62
[2019-01-18 05:02] LABS: BASOPHIL % 0.4 % (0-2)
[2019-01-18 05:05] LABS: PLATELET COUNT 111 x10^3mcL (130-400); RED CELL DISTRIBUTION WIDTH 18.2 % (11.5-14.5)
[2019-01-18 05:20] LABS: CALCIUM 8.5 mg/dL (8.5-10.1); CARBON DIOXIDE 31.3 mmol/L (21-32); CREATININE SERUM 1.4 mg/dL (0.7-1.3); MAGNESIUM 1.6 mg/dL (1.8-2.4)
[2019-01-18 07:30] VITALS: BP 107/82
[2019-01-18 11:29] VITALS: BP 99/61
[2019-01-18 17:13] VITALS: BP 96/56
[2019-01-18 21:00] VITALS: BP 103/53
[2019-01-18 21:01] VITALS: BP 111/64
[2019-01-19 06:05] VITALS: BP 97/53
[2019-01-19 06:54] LABS: BASOPHIL % 0.3 % (0-2)
[2019-01-19 06:55] LABS: PLATELET COUNT 95 x10^3mcL (130-400); RED CELL DISTRIBUTION WIDTH 18.8 % (11.5-14.5)
[2019-01-19 07:09] LABS: CALCIUM 7.8 mg/dL (8.5-10.1); CARBON DIOXIDE 29.8 mmol/L (21-32); CREATININE SERUM 1.4 mg/dL (0.7-1.3); MAGNESIUM 1.3 mg/dL (1.8-2.4); POTASSIUM SERUM 4.2 mmol/L (3.5-5.1)
[2019-01-19 08:04] VITALS: BP 102/60
[2019-01-19 11:56] VITALS: BP 110/61
[2019-01-19 17:18] VITALS: BP 86/38
[2019-01-19 19:20] VITALS: BP 84/37; BP 87/45
[2019-01-20] VITALS (8 sets, daily range): BP systolic 72–97; BP diastolic 35–59
[2019-01-20 06:42] LABS: BASOPHIL % 0.4 % (0-2)
[2019-01-20 06:49] LABS: CALCIUM 7.8 mg/dL (8.5-10.1); CARBON DIOXIDE 27.5 mmol/L (21-32); CREATININE SERUM 2.1 mg/dL (0.7-1.3); POTASSIUM SERUM 4.9 mmol/L (3.5-5.1)
[2019-01-20 06:53] LABS: PLATELET COUNT 101 x10^3mcL (130-400); RED CELL DISTRIBUTION WIDTH 19.2 % (11.5-14.5)
[2019-01-20 11:03] LABS: UA SPECIFIC GRAVITY 1.025 (1.005-1.035); microscopic required? YES; urine erythrocyte 2+ (NEGATIVE)
[2019-01-21] VITALS (7 sets, daily range): BP systolic 82–95; BP diastolic 46–54
[2019-01-21 06:21] LABS: BASOPHIL % 0.3 % (0-2)
[2019-01-21 07:07] LABS: PLATELET COUNT 110 x10^3mcL (130-400); RED CELL DISTRIBUTION WIDTH 19.3 % (11.5-14.5)
[2019-01-21 07:09] LABS: CARBON DIOXIDE 25.4 mmol/L (21-32); CREATININE SERUM 2.5 mg/dL (0.7-1.3); POTASSIUM SERUM 4.7 mmol/L (3.5-5.1)
[2019-01-21 13:33] LABS: burr cell (echinocyte) 1+; rbc morphology (normal/abnorm) ABNORMAL (NORMAL)
[2019-01-22 05:49] VITALS: BP 87/46
[2019-01-22 06:41] LABS: CALCIUM 8.2 mg/dL (8.5-10.1); CARBON DIOXIDE 26.7 mmol/L (21-32); CREATININE SERUM 2.9 mg/dL (0.7-1.3); POTASSIUM SERUM 4.9 mmol/L (3.5-5.1)
[2019-01-22 08:05] LABS: BASOPHIL % 0.4 % (0-2)
[2019-01-22 08:09] LABS: PLATELET COUNT 97 x10^3mcL (130-400)
[2019-01-22 08:45] VITALS: BP 92/42
[2019-01-22 12:21] VITALS: BP 97/50
[2019-01-22 16:15] VITALS: BP 101/54
[2019-01-22 20:53] VITALS: BP 99/55
[2019-01-23 05:43] VITALS: BP 95/47
[2019-01-23 07:19] LABS: BASOPHIL % 0.6 % (0-2)
[2019-01-23 07:45] LABS: PLATELET COUNT 122 x10^3mcL (130-400); RED CELL DISTRIBUTION WIDTH 24.1 % (11.5-14.5)
[2019-01-23 08:53] LABS: CALCIUM 8.4 mg/dL (8.5-10.1); CARBON DIOXIDE 22.5 mmol/L (21-32); CREATININE SERUM 3.7 mg/dL (0.7-1.3); POTASSIUM SERUM 5.5 mmol/L (3.5-5.1)
[2019-01-23 09:39] VITALS: BP 93/55
[2019-01-23 12:58] VITALS: BP 110/54
[2019-01-23 16:46] VITALS: BP 107/58
[2019-01-23 21:04] VITALS: BP 104/60
[2019-01-24] VITALS (14 sets, daily range): BP systolic 94–120; BP diastolic 44–73
[2019-01-24 06:23] LABS: BASOPHIL % 0.6 % (0-2)
[2019-01-24 06:34] LABS: CALCIUM 8.2 mg/dL (8.5-10.1); CARBON DIOXIDE 22.5 mmol/L (21-32); CREATININE SERUM 3.7 mg/dL (0.7-1.3); POTASSIUM SERUM 5.3 mmol/L (3.5-5.1)
[2019-01-24 07:21] LABS: PLATELET COUNT 120 x10^3mcL (130-400); RED CELL DISTRIBUTION WIDTH 23.5 % (11.5-14.5)
[2019-01-24 08:51] LABS: rbc morphology (normal/abnorm) ABNORMAL (NORMAL)
[2019-01-25] VITALS (17 sets, daily range): BP systolic 91–124; BP diastolic 43–67
[2019-01-25 04:48] LABS: BASOPHIL % 0.6 % (0-2)
[2019-01-25 05:04] LABS: PLATELET COUNT 106 x10^3mcL (130-400); RED CELL DISTRIBUTION WIDTH 24.8 % (11.5-14.5)
[2019-01-25 05:09] LABS: rbc morphology (normal/abnorm) ABNORMAL (NORMAL); target cell (codocyte) 1+
[2019-01-25 05:10] LABS: acanthocyte (spur cell) 1+
[2019-01-25 05:12] LABS: CALCIUM 8.3 mg/dL (8.5-10.1); CARBON DIOXIDE 25.2 mmol/L (21-32); CREATININE SERUM 3.4 mg/dL (0.7-1.3); POTASSIUM SERUM 4.6 mmol/L (3.5-5.1)
[2019-01-25 09:09] LABS: ALBUMIN 3.1 g/dL (3.4-5.0); BILIRUBIN DIRECT 4.86 mg/dL (0.0-0.2); BILIRUBIN TOTAL 9.4 mg/dL (0.20-1.00); TOTAL PROTEIN, SERUM 6.2 g/dL (6.4-8.2)
[2019-01-26] VITALS (18 sets, daily range): BP systolic 79–125; BP diastolic 37–80
[2019-01-26 05:15] LABS: BASOPHIL % 0.1 % (0-2)
[2019-01-26 05:21] LABS: PLATELET COUNT 93 x10^3mcL (130-400); RED CELL DISTRIBUTION WIDTH 25.9 % (11.5-14.5)
[2019-01-26 05:33] LABS: CALCIUM 8.2 mg/dL (8.5-10.1); CARBON DIOXIDE 22.8 mmol/L (21-32); CREATININE SERUM 3.5 mg/dL (0.7-1.3); POTASSIUM SERUM 4.4 mmol/L (3.5-5.1)
[2019-01-27] VITALS (18 sets, daily range): BP systolic 76–114; BP diastolic 36–64
[2019-01-27 05:22] LABS: BASOPHIL % 0.1 % (0-2)
[2019-01-27 05:25] LABS: PLATELET COUNT 108 x10^3mcL (130-400); RED CELL DISTRIBUTION WIDTH 24.4 % (11.5-14.5)
[2019-01-27 05:32] LABS: acanthocyte (spur cell) 1+; rbc morphology (normal/abnorm) ABNORMAL (NORMAL); schistocyte (helmet cell) 1+; target cell (codocyte) 1+
[2019-01-27 05:34] LABS: ovalocyte/elliptocyte 1+
[2019-01-27 05:35] LABS: POTASSIUM SERUM 4.4 mmol/L (3.5-5.1)
[2019-01-27 05:37] LABS: CALCIUM 8.4 mg/dL (8.5-10.1); CREATININE SERUM 3.1 mg/dL (0.7-1.3)
[2019-01-28] VITALS (19 sets, daily range): BP systolic 95–123; BP diastolic 45–70
[2019-01-28 05:24] LABS: BASOPHIL % 0.3 % (0-2)
[2019-01-28 05:25] LABS: PLATELET COUNT 106 x10^3mcL (130-400); RED CELL DISTRIBUTION WIDTH 25.2 % (11.5-14.5)
[2019-01-28 05:32] LABS: CARBON DIOXIDE 27.2 mmol/L (21-32); CREATININE SERUM 2.6 mg/dL (0.7-1.3); MAGNESIUM 2.4 mg/dL (1.8-2.4); POTASSIUM SERUM 4.2 mmol/L (3.5-5.1)
[2019-01-28 06:17] LABS: schistocyte (helmet cell) 1+
[2019-01-28 06:18] LABS: rbc morphology (normal/abnorm) ABNORMAL (NORMAL)
[2019-01-29] VITALS (18 sets, daily range): BP systolic 93–128; BP diastolic 53–104
[2019-01-29 05:19] LABS: BASOPHIL % 0.4 % (0-2); PLATELET COUNT 113 x10^3mcL (130-400); RED CELL DISTRIBUTION WIDTH 25.9 % (11.5-14.5)
[2019-01-29 05:21] LABS: CALCIUM 9.1 mg/dL (8.5-10.1); CARBON DIOXIDE 25.6 mmol/L (21-32); CREATININE SERUM 1.8 mg/dL (0.7-1.3)
[2019-01-29 12:17] LABS: BILIRUBIN DIRECT 4.84 mg/dL (0.0-0.2); BILIRUBIN TOTAL 6.8 mg/dL (0.20-1.00); TOTAL PROTEIN, SERUM 6.8 g/dL (6.4-8.2)
[2019-01-29 12:18] LABS: ALBUMIN 3.2 g/dL (3.4-5.0)
[2019-01-30] VITALS (13 sets, daily range): BP systolic 87–122; BP diastolic 47–76
[2019-01-30 05:21] LABS: BASOPHIL % 1.4 % (0-2)
[2019-01-30 05:23] LABS: PLATELET COUNT 110 x10^3mcL (130-400); RED CELL DISTRIBUTION WIDTH 26.2 % (11.5-14.5)
[2019-01-30 05:29] LABS: CALCIUM 9.3 mg/dL (8.5-10.1); CARBON DIOXIDE 30.5 mmol/L (21-32); CREATININE SERUM 1.9 mg/dL (0.7-1.3); POTASSIUM SERUM 3.6 mmol/L (3.5-5.1)
[2019-01-31 03:03] VITALS: BP 107/56
[2019-01-31 05:10] LABS: BASOPHIL % 0.1 % (0-2)
[2019-01-31 05:12] LABS: PLATELET COUNT 100 x10^3mcL (130-400); RED CELL DISTRIBUTION WIDTH 27.1 % (11.5-14.5)
[2019-01-31 05:23] LABS: CALCIUM 9.2 mg/dL (8.5-10.1); CARBON DIOXIDE 28.6 mmol/L (21-32); CREATININE SERUM 1.5 mg/dL (0.7-1.3); POTASSIUM SERUM 3.8 mmol/L (3.5-5.1)
[2019-01-31 08:36] VITALS: BP 99/62
[2019-01-31 09:11] VITALS: Ht 175.3 cm; Wt 103.8 kg
[2019-01-31 12:30] VITALS: BP 105/81
[2019-01-31 12:57] VITALS: BP 99/62
[2019-01-31 21:05] VITALS: BP 110/71
[2019-02-01 05:39] VITALS: BP 101/62
[2019-02-01 06:23] LABS: CALCIUM 8.7 mg/dL (8.5-10.1); CHLORIDE SERUM 102 mmol/L (98-107); CREATININE SERUM 1.1 mg/dL (0.7-1.3); GFR1 > 60 mL/min; GLUCOSE SERUM 155 mg/dL (74-106); SODIUM SERUM 137 mmol/L (136-145)
[2019-02-01 07:06] LABS: BASOPHIL % 0 % (0-2); PLATELET COUNT 91 x10^3mcL (130-400); RED CELL DISTRIBUTION WIDTH 27.1 % (11.5-14.5)
[2019-02-01 08:49] VITALS: BP 108/60
[2019-02-01 09:21] LABS: rbc morphology (normal/abnorm) ABNORMAL (NORMAL)
[2019-02-01 12:14] VITALS: BP 113/64
[2019-02-01 16:38] VITALS: BP 115/70
[2019-02-01 21:27] VITALS: BP 112/65
[2019-02-02 05:44] VITALS: BP 109/67
[2019-02-02 07:05] LABS: CALCIUM 8.5 mg/dL (8.5-10.1); CHLORIDE SERUM 101 mmol/L (98-107); CREATININE SERUM 0.9 mg/dL (0.7-1.3); GFR1 > 60 mL/min; GLUCOSE SERUM 90 mg/dL (74-106); POTASSIUM SERUM 3.9 mmol/L (3.5-5.1); SODIUM SERUM 137 mmol/L (136-145)
[2019-02-02 07:24] LABS: BASOPHIL % 0.2 % (0-2)
[2019-02-02 07:34] LABS: PLATELET COUNT 102 x10^3mcL (130-400)
[2019-02-02 07:35] VITALS: BP 109/60
[2019-02-02 08:00] VITALS: BP 109/60
[2019-02-02 11:39] VITALS: BP 117/72
[2019-02-02 12:05] LABS: rbc morphology (normal/abnorm) ABNORMAL (NORMAL)
[2019-02-02 16:43] VITALS: BP 106/59
[2019-02-02 20:04] VITALS: BP 114/68
[2019-02-03 05:27] VITALS: BP 114/69
[2019-02-03 06:43] LABS: BASOPHIL % 0.2 % (0-2)
[2019-02-03 06:48] LABS: PLATELET COUNT 87 x10^3mcL (130-400); RED CELL DISTRIBUTION WIDTH 27.6 % (11.5-14.5)
[2019-02-03 07:35] LABS: CALCIUM 8.4 mg/dL (8.5-10.1); CARBON DIOXIDE 27.1 mmol/L (21-32); CHLORIDE SERUM 101 mmol/L (98-107); CREATININE SERUM 0.8 mg/dL (0.7-1.3); GFR1 > 60 mL/min; GLUCOSE SERUM 125 mg/dL (74-106); POTASSIUM SERUM 4.6 mmol/L (3.5-5.1); SODIUM SERUM 137 mmol/L (136-145)
[2019-02-03 07:45] VITALS: BP 112/66
[2019-02-03 10:24] LABS: rbc morphology (normal/abnorm) ABNORMAL (NORMAL)
[2019-02-03 11:19] LABS: burr cell (echinocyte) 1+; schistocyte (helmet cell) 1+
[2019-02-03 11:20] LABS: acanthocyte (spur cell) 1+; target cell (codocyte) 1+
[2019-02-03 11:35] VITALS: BP 110/65
[2019-02-03 15:27] VITALS: BP 110/65
[2019-02-03 16:00] VITALS: BP 117/67
[2019-02-03 19:19] VITALS: BP 111/63
[2019-02-04 04:26] VITALS: BP 105/57
[2019-02-04 06:34] LABS: BASOPHIL % 0.1 % (0-2)
[2019-02-04 06:53] LABS: PLATELET COUNT 97 x10^3mcL (130-400); RED CELL DISTRIBUTION WIDTH 27.9 % (11.5-14.5)
[2019-02-04 06:59] LABS: CALCIUM 8.5 mg/dL (8.5-10.1); CARBON DIOXIDE 27.2 mmol/L (21-32); CHLORIDE SERUM 102 mmol/L (98-107); CREATININE SERUM 0.8 mg/dL (0.7-1.3); GFR1 > 60 mL/min; GLUCOSE SERUM 118 mg/dL (74-106); POTASSIUM SERUM 4.8 mmol/L (3.5-5.1); SODIUM SERUM 138 mmol/L (136-145)
[2019-02-04 08:10] VITALS: BP 110/60
[2019-02-04 11:45] VITALS: BP 112/70
[2019-02-04 13:22] LABS: rbc morphology (normal/abnorm) ABNORMAL (NORMAL)
[2019-02-04 13:23] LABS: acanthocyte (spur cell) 1+; burr cell (echinocyte) 1+; schistocyte (helmet cell) 1+; target cell (codocyte) 1+
[2019-02-04 16:09] VITALS: BP 103/70
[2019-02-04 20:05] VITALS: BP 109/67
[2019-02-05 05:11] VITALS: BP 112/65
[2019-02-05 08:35] VITALS: BP 113/93
[2019-02-05] MEDS ORDERED: ALDACTONE25 MG PO (10:24)
[2019-02-05] MEDS ORDERED: MIDODRINE HCL10 MG PO (10:24)
[2019-02-05] MEDS ORDERED: LANSOPRAZOLE30 M2 PO (10:25)
[2019-02-05] MEDS ORDERED: PREDNISONE20 MG PO (10:25)
[2019-02-05] MEDS ORDERED: LASIX20 MG PO (10:27)
[2019-02-05 13:02] VITALS: BP 113/93
== END 2019-02-05 14:09 | disposition home or self-care (01) | DRG 280 ==
LOC: ED 18:06 → DU 19:01 → IC 19:01 → DU 01-18 16:58 → IC 01-24 08:58 → DU 01-31 16:13 → MU 02-04 19:04
PROVIDERS: Emergency Medicine; General Practice; Internal Medicine; Internal Medicine Gastroenterology; Internal Medicine Nephrology; ADMIT Internal Medicine
PROC: 06L38CZ Occlusion of Esophageal Vein with Extraluminal Device, Via Natural or Artificial Opening Endoscopic (ICD-10-PCS; 2019-01-12)
PROC: 05HM33Z Insertion of Infusion Device into Right Internal Jugular Vein, Percutaneous Approach (ICD-10-PCS; 2019-01-12)
PROC: 5A1955Z Respiratory Ventilation, Greater than 96 Consecutive Hours (ICD-10-PCS; principal; 2019-01-12 07:30)
PROC: 0BH17EZ Insertion of Endotracheal Airway into Trachea, Via Natural or Artificial Opening (ICD-10-PCS; 2019-01-12 07:30)
PROC: 5A1955Z Respiratory Ventilation, Greater than 96 Consecutive Hours (ICD-10-PCS; 2019-01-24)
PROC: 0BH17EZ Insertion of Endotracheal Airway into Trachea, Via Natural or Artificial Opening (ICD-10-PCS; 2019-01-24)
PROC: 0DJ08ZZ Inspection of Upper Intestinal Tract, Via Natural or Artificial Opening Endoscopic (ICD-10-PCS; 2019-01-24)
DX: K70.31 Alcoholic cirrhosis of liver with ascites (principal); K70.40 Alcoholic hepatic failure without coma; R57.1 Hypovolemic shock; I21.A1 Myocardial infarction type 2; J96.00 Acute respiratory failure, unspecified whether with hypoxia or hypercapnia; E43 Unspecified severe protein-calorie malnutrition; I85.11 Secondary esophageal varices with bleeding; D68.4 Acquired coagulation factor deficiency; D62 Acute posthemorrhagic anemia; E11.65 Type 2 diabetes mellitus with hyperglycemia; I95.89 Other hypotension; K76.6 Portal hypertension; I24.8 Other forms of acute ischemic heart disease; E87.5 Hyperkalemia; E83.42 Hypomagnesemia; K31.7 Polyp of stomach and duodenum; I10 Essential (primary) hypertension; F10.229 Alcohol dependence with intoxication, unspecified; F10.288 Alcohol dependence with other alcohol-induced disorder; E66.9 Obesity, unspecified; Z66 Do not resuscitate; Z68.30 Body mass index [BMI] 30.0-30.9, adult; Z91.19 Patient's noncompliance with other medical treatment and regimen; Z79.4 Long term (current) use of insulin; Y90.2 Blood alcohol level of 40-59 mg/100 ml
CPT/HCPCS: 31500; 36600; 43235; 82962; 83880; 94150; 97110-GP; 97116-GP; 97530-GP; A4628; C1758; C9113; G0378; G0480; J0171; J0696; J1200; J1335; J1610; J1642; J1720; J1815; J1885; J1940; J2250; J2310; J2354; J2370; J2405; J2765; J2916; J3010; J3370; J3430; J3475; J3490; J7030; J7040; J7050; J7510; J7620; J8597; P9016; P9045; P9047; P9059; Q0092; Q0163